=== PATIENT | male | born 1945 | race Caucasian/White ===

== ENCOUNTER 2020-11-15 11:48 | Outpatient (CLI) | payer MEDICARE, OTHER | END 2020-11-15 11:49 | disposition home or self-care (01) | LOC: CTENTCT 11:48 | PROVIDERS: ATTEND Student in an Organized Health Care Education/Training Program | DX: R22.0 Localized swelling, mass and lump, head (principal) | CPT/HCPCS: 70486 ==

== ENCOUNTER 2020-12-02 14:33 | Outpatient (CLI) | payer MEDICARE, OTHER ==
--- NOTE | 2020-12-02 15:23 | RAD ---
2 VIEW CHEST: Date: 12/02/2020 HISTORY: Cough. There is a history of left pneumonectomy given by the technologist. No comparison. FINDINGS: Opacification of left chest with mediastinum shifted into the left chest consistent with the stated h istory of left pneumonectomy. The right lung is hyperexpanded and appears clear. No right lung infiltrate or vascular congestion id entified. Heart cannot be adequately assessed due to shift into the left chest. There is aortic calcification. Osseous structures unremarkable. There is mild compression of the T12 vertebra. IMPRESSION: Evidence of left pneumonectomy. No acute right lung infiltrate identified. POS: AGW
== END 2020-12-02 14:34 | disposition home or self-care (01) ==
LOC: BICRAD 14:33
PROVIDERS: ATTEND Family Medicine
DX: R05 Cough (principal); Z90.2 Acquired absence of lung [part of]
CPT/HCPCS: 71046

== ENCOUNTER 2020-12-09 09:54 | Inpatient (IN) | payer MEDICARE, OTHER ==
[2020-12-09] MEDS ORDERED: Lidocaine 1% (PF) 30 ML VIAL ONE (10:21)
--- NOTE | 2020-12-09 10:36 | RAD ---
SINGLE VIEW OF THE CHEST: COMPARISON: 12/02/2020. HISTORY: Chest pain and shortness of breath. Cough. FINDINGS: A single view of the chest shows a cardiomediastinal silhouette which is upper limits of normal in si ze. There is opacification of the left thorax secondary to left pneumonectomy with volume loss in the left thorax. There is right perihilar fullness which could represent pulmonary vascular congestion or a perihilar infiltrate. Slight blunting of the right costophrenic angle could represent a small p leural effusion. IMPRESSION: Right perihilar infiltrate versus pulmonary congestion. POS: EAA
[2020-12-09 10:37] LABS: #Eosinphils 0.1 thou/uL (0.0-0.7); #Lymphocytes 0.9 thou/uL (1.20-3.40); #Monocytes 1.3 thou/uL (0.11-0.59); #Neutrophils 8.2 thou/uL (1.40-6.50); %Basophils 0.1 % (0.0-1.0); %Eosinophils 1.3 % (0.0-10.0); %Lymphocytes 8.2 % (21.0-51.0); %Monocytes 12.5 % (0.0-10.0); %Neutrophils 77.9 % (42.0-75.0); Hemoglobin 10.7 g/dL (14.0-18.0); Mean Corpuscular HGB CONC 32.4 g/dL (32.0-36.0); Mean Corpuscular Hemoglobin 33.9 pg (27.0-31.0); Mean Platelet Volume 7.5 fL (7.4-10.4); Platelet Count 187 thou/uL (130-400); Red Blood Cell (RBC) Count 3.16 mill/uL (4.70-6.10); White Blood Cell (WBC) Count 10.5 thou/uL (4.8-10.8)
[2020-12-09 10:44] LABS: INR-International Normal Ratio 1.4; PTT 39.1 sec (22.9-36.1); Prothrombin Time 17.9 sec (12.0-14.7)
[2020-12-09 10:58] LABS: ALT (SGPT) 16 U/L (8-55); AST (SGOT) 9 U/L (5-34); Albumin 3.2 g/dL (3.4-4.8); Alkaline Phosphatase 79 U/L (40-110); Anion Gap 13 mmol/L (10-20); BUN (Urea Nitrogen) 28 mg/dL (8.4-25.7); Bilirubin, Total 1.4 mg/dL (0.2-1.2); CK (CPK) 37 U/L (30-200); Calc. Creatinine Clearance 0 mL/min (70-130); Calcium 8.4 mg/dL (7.8-10.44); Carbon Dioxide 28 mmol/L (23-31); Chloride 105 mmol/L (98-107); Globulin 2.6 g/dL (2.4-3.5); Glucose 277 mg/dL (83-110); Potassium 3.6 mmol/L (3.5-5.1); Protein, Total 5.8 g/dL (5.8-8.1); Sodium 142 mmol/L (136-145)
[2020-12-09 11:20] LABS: CKMB 2.4 ng/mL (0-6.6)
[2020-12-09] MEDS ORDERED: Furosemide 40 MG/4 ML VIAL ONE (11:57)
[2020-12-09] MEDS ORDERED: Enoxaparin Sodium 100 MG/ML SYRINGE ONE (11:57)
[2020-12-09] MEDS ORDERED: Enoxaparin Sodium 80 MG/0.8 ML SYRINGE ONE (12:34)
[2020-12-09] MEDS ORDERED: Enoxaparin Sodium 40 MG/0.4 ML SYRINGE ONE (12:34)
[2020-12-09] MEDS ORDERED: Ondansetron ODT 4 MG TAB PO PRN (12:46)
[2020-12-09] MEDS ORDERED: Ondansetron PF 4 MG/2 ML Vial IVP PRN (12:46)
[2020-12-09] MEDS ORDERED: Acetaminophen 325 MG TAB PO PRN (12:46)
[2020-12-09] MEDS ORDERED: hydrALAZINE 20 MG/ML VIAL SLOW IVP PRN (12:50)
[2020-12-09] MEDS ORDERED: Nitroglycerin 0.4 MG TAB (25 Tab Bottle) SL PRN (12:50)
--- NOTE | 2020-12-09 13:02 | CON ---
DATE OF CONSULTATION: 12/09/2020 INDICATION FOR CONSULTATION: A 75-year-old gentleman with history of coronary artery disease status post angioplasty and stent placement, who presented with shortness of breath and chest discomfort. HISTORY OF PRESENT ILLNESS: This is a very unfortunate 75-year-old gentleman who has undergone angioplasty and stent placement to both the left anterior descending and also a left main. He had a stent placed in the ostial left main with a 3.0 x 15 mm stent. He also had a stent placed in 2012 to the left anterior descending artery, which was a 2.7 x 18 mm stent. He had one cardiac catheterization in January 2020. He was told he had patent stents. He recently had an echocardiogram and was seen by Dr. Stephens in the office. It was told the ejection fraction was within normal limits, but he had diastolic dysfunction. He has multiple other problems, not only including his coronary artery disease, but has history of COPD, has lung cancers, has left lung removed. He also has diabetes. He has been diagnosed with celiac disease as well as his other medical problems which will be listed in his past medical history when I dictate that portion this morning. Apparently over the last couple days, he has been noticing increasing shortness of breath and coughing. He did not have a fever. He is on home O2 of 24/7 and when become more short of breath, he notices O2 sats after he would get up and go to the bathroom and come back were in the 80s, and actually dropping down to the 70s at times. He is normally on 3.5 L of oxygen. He had increased his oxygen level up to 4 L/minute, but then cut it back down to 3.5 L/minute and feeling this might be too much. The lowest O2 saturation he saw was about 69% eventually and also his blood pressure at home was elevated as much as 187/70, but has been mainly in the 150s at home. He also takes midodrine 3 times a day apparently for some orthostatic hypotension. He had been falling in the past. This apparently has stopped. He does not know when he had falls. He did not admit that he was having lightheadedness or dizziness when he was falling, but said that may be his legs just give way. He has gained about 7 pounds recently, which most likely is due to volume intake. He tries to balance this fluid because he has renal insufficiency and today his creatinine is 1.5, but previously his creatinine has been as high as 2.04 in September of this past year. At this time, he is feeling better and only has minimal discomfort. His EKG did not show any acute ST-segment changes. He did have some nonspecific changes. He also has a history of intermittent atrial fibrillation. Some of the EKGs today appear to be in sinus rhythm. Others appear to be almost an atrial fibrillation. He has been on Pradaxa every day. He also takes Plavix as well as an aspirin. His Pradaxa 75 mg twice a day. He also takes Ranexa. At this time, again there is no acute ST-segment changes. Cardiac enzymes are still pending at the time of this dictation. We will continue to monitor those very carefully and I will recheck him prior to finishing the dictation. At this time, he is feeling better. He does not exert himself. He does not have too much shortness of breath. O2 saturations here in the 90% to 100% on 3 L. PAST MEDICAL AND SURGICAL HISTORY: Significant for coronary artery disease. He has had angioplasty and stent placement as noted above. He has had a partial thyroidectomy. He has had a cholecystectomy. He had a port placed for chemotherapy in his left upper chest. He had removal of the left lung due to lung cancer. He has had kidney stones and bladder tumors. He had cataract removal of the left eye. He has also had some cataract removal of the right eye. He has had laser surgery to the kidney I believe due to nephrolithiasis. He has had a colonoscopy. He has had problems with urinary retention. He has had urinary tract infections in the past. He has diabetes, hypertension. He has diastolic dysfunction. He also has celiac disease. MEDICATIONS PRIOR TO ADMISSION: Include: 1. Allopurinol 300 mg a day. 2. Alphagan ophthalmic drops. 3. He takes cetirizine 10 mg q.p.m. 4. He takes vitamin B12. 5. He takes Lexapro 10 mg every morning. 6. He is on ferrous sulfate 325 mg q.a.m. 7. Fluticasone nasal spray. 8. Gabapentin 300 mg q.p.m. 9. He takes Incruse Ellipta INH 1 inhalation daily. 10. Levoxyl 75 mcg q.a.m. 11. Lipitor 80 mg a day. 12. Midodrine 5 mg 3 times a day, which has been recently decreased to twice a day due to having low blood pressure at home. His family, caretakers, and daughter says his blood pressures have been in the 90s to 110s, but at times have been in the 150s. 13. He is on mirtazapine 7.5 mg q.p.m. 14. Nitroglycerin patch sublingual as needed. 15. Qunol CoQ10 100 mg q.a.m. 16. Plavix 75 mg q.a.m. 17. He is also taking Pepcid/AC 10 mg 2 tablets q.p.m. 18. Pradaxa 75 mg b.i.d. 19. Ranexa 1000 mg b.i.d. 20. Symbicort aerosol inhalation every 12 hours. 21. Flomax 0.4 mg q.p.m. 22. Temazepam 7.5 mg q.p.m. 23. Trazodone 100 mg q.p.m. 24. Vitamin C 1000 mg q.a.m. 25. Vitamin D2. 26. Welchol. ALLERGIES: HE IS ALLERGIC TO MORPHINE. REVIEW OF SYSTEMS: On discussion today, he has had some right ear and right eye problems, which is congestion. He says actually some of his problems started since this had occurred a couple weeks ago with the increasing congestion. He was given steroids and then has had some problems since that time. CT scan at that time did not show any significant problems with the sinuses. Apparently, CT scan was unremarkable. He was given some ophthalmic drops and that he notices some congestion. He has also had some coughing. He has had some mata tinged sputum. He has had some occasional diarrhea which he attributes to some of his celiac disease, but has been under much better control since he has been watching his diet. He is on a celiac diet. Also, he has had no new complaints. He has had some lower extremity edema, but this is not any worse than what it usually is, but he has gained about 7 pounds in the last week or so. Neurologically no new complaints. PHYSICAL EXAMINATION: GENERAL: Reveals an elderly gentleman. He is in no acute distress. He does have some mild shortness of breath if it becomes too agitated or moves about too much in the emergency room up and down the bed, but says his pain is very minimal at this time discomfort. HEENT: Shows the head to be normocephalic and atraumatic. Carotid pulses are present. I did not hear any gross bruits. CHEST: He has decreased breath sounds on the left side and will be expected after his pneumonectomy and he has some E/A changes there. He also has some rales noted in the right base with some slight wheezing. CARDIOVASCULAR: At this time appears to be regular. He has a systolic murmur at the apex, 2 to 3/6, compatible most likely with mitral valve regurgitation. ABDOMEN: Obese. Positive bowel sounds are present. I did not elicit any tenderness or masses. EXTREMITIES: Show no clubbing or cyanosis. He has only trace ankle edema. His popliteal and femoral pulses are present. I cannot palpate pedal pulses. NEUROLOGICAL: He appears to be grossly intact. LABORATORY DATA: At this time shows a potassium of 3.6, sodium was 142, BUN was 38 with a creatinine of 1.5, blood sugar was 277. His INR is 1.4, PTT was 39.1. His WBC is 10.5, hemoglobin 10.7, hematocrit 33.1, and platelet count was 187,000. DIAGNOSTIC STUDIES: Chest x-ray shows some right mid to lower congestion. This is either an infiltrate versus congestion. This certainly could be congestion. The left side is pretty much den out. EKG at this time to me appears to be in a sinus rhythm. He has some nonspecific ST-segment changes with T-wave inversions in 1 and aVL. I do not have any EKGs for comparison, but there were no acute ST-segment changes or acute ST-segment elevation at this time. IMPRESSION AND PLAN: 1. Coronary artery disease with possible hvb-LY-dcceroy elevation myocardial infarction. We will obtain cardiac enzymes. We will trend these enzymes. Should the patient continued to have chest pain or significant elevation of cardiac enzymes or further chest pain, he may need to go to the cardiac laborer. At this time, I believe he does have volume overload. We will need some diuresis. He has difficulty just lying down flat, which would make this more difficult to proceed with cardiac catheterization unless it becomes an emergency. We will continue to monitor this very carefully as we do know he has left main disease and a stent in the left main as well as in the left anterior descending artery. At this time, there were no anterior ST-segment elevations noted, but he did have some lateral changes in 1 and aVL with T-wave inversions. 2. History of lung cancer, status post left pneumonectomy. 3. Chronic obstructive pulmonary disease. He has seen Dr. Kaur in the past. If he continues to have increasing shortness of breath and problems oxygenating, he may need to be seen by Pulmonology. 4. Diabetes. This will be dealt by the primary care service. He has been on steroids for a recent cough and congestion and this may have caused the elevation in the blood sugar. 5. History of intermittent atrial fibrillation. At this time, it appears that he has a sinus rhythm, but may be intermittently one of the EKGs earlier today in the emergency room did appear to be in sinus rhythm, but the P waves at baseline is somewhat difficult to visualize. We will continue to monitor the patient very carefully. At this time, he is on anticoagulation in the form of Pradaxa as well as Plavix and aspirin. I am not sure about the aspirin. He may or may not be taking a baby aspirin. We will need to verify this. I do not see listed on his medications, but the daughter did mention something about aspirin. 6. History of chronic kidney disease. This will also need to be followed very carefully. We will need to try to gently diurese the patient in order to assist his heart failure and then order not to over diurese the patient should he need to undergo cardiac catheterization. Would not want to further injure the kidneys. 7. Celiac disease. This will need to be dealt also by the primary care service. 8. Anemia. This may be due to some degree of dilution and will follow that also very carefully. Further care of the patient will be by Dr. Stephens when he visits with the patient tomorrow unless the patient becomes more unstable, which would entail most likely an urgent cardiac catheterization. Job ID: [id number]
[2020-12-09 13:09] LABS: SARS-CoV-2 NAA Rapid Test Not Detected (NotDetected)
[2020-12-09 13:30] LABS: Cardiac Risk 2.2 (Less than 4.5)
[2020-12-09 15:20] VITALS: BMI 36.1
[2020-12-09] MEDS: cefTRIAXone\\ROCEPHIN 1 GM in Sodium Chloride 0.9% 100 ML IVPB SCH (15:39)
[2020-12-09] MEDS: guaiFENesin 200 MG TAB PO SCH ×2 (15:40→20:18)
[2020-12-09] MEDS: Heparin 5,000 UNITS/ML VIAL SC SCH ×2 (15:40→20:19)
[2020-12-09 17:03] LABS: CKMB 2.7 ng/mL (0-6.6)
[2020-12-09] MEDS: HumaLOG 300 UNITS/3 ML VIAL SC PRN (17:14)
[2020-12-09] MEDS ORDERED: Dextrose 5% in Water 1,000 ML IV PRN (17:15)
[2020-12-09] MEDS ORDERED: Dextrose 50% Abboject 50 ML SYRINGE IVP PRN (17:15)
[2020-12-09] MEDS: Atorvastatin Calcium 40 MG TAB PO SCH (20:18)
[2020-12-10] MEDS: guaiFENesin 200 MG TAB PO SCH ×6 (01:52→20:44)
[2020-12-10 04:50] LABS: #Eosinphils 0.4 thou/uL (0.0-0.7); #Lymphocytes 1.4 thou/uL (1.20-3.40); #Monocytes 0.8 thou/uL (0.11-0.59); #Neutrophils 4.9 thou/uL (1.40-6.50); %Basophils 0.1 % (0.0-1.0); %Eosinophils 5.4 % (0.0-10.0); %Lymphocytes 18.4 % (21.0-51.0); %Neutrophils 66.1 % (42.0-75.0); Hemoglobin 10.5 g/dL (14.0-18.0); Mean Corpuscular HGB CONC 33.2 g/dL (32.0-36.0); Mean Corpuscular Hemoglobin 34.1 pg (27.0-31.0); Mean Platelet Volume 7.7 fL (7.4-10.4); Platelet Count 182 thou/uL (130-400); RBC Distribution Width 14.1 % (11.5-14.5); Red Blood Cell (RBC) Count 3.08 mill/uL (4.70-6.10); White Blood Cell (WBC) Count 7.5 thou/uL (4.8-10.8)
[2020-12-10 04:54] LABS: Hemoglobin A1c 5.4 % (4.0-6.0)
[2020-12-10 05:12] LABS: Anion Gap 14 mmol/L (10-20); BUN (Urea Nitrogen) 26 mg/dL (8.4-25.7); Calc. Creatinine Clearance 70 mL/min (70-130); Calcium 8.2 mg/dL (7.8-10.44); Carbon Dioxide 26 mmol/L (23-31); Chloride 107 mmol/L (98-107); Glucose 156 mg/dL (83-110); Potassium 3.3 mmol/L (3.5-5.1); Sodium 144 mmol/L (136-145)
--- NOTE | 2020-12-10 05:20 | HP ---
CHIEF COMPLAINT: Chest pain. HISTORY OF PRESENT ILLNESS: A 75-year-old male with a history of coronary artery disease, status post stent placement to the left main; type-2 diabetes mellitus; chronic kidney disease; celiac disease; presenting with chest pain radiating to the left side. The patient also has productive cough and overall not feeling well and dyspnea on exertion. He did not have any fever, but productive cough for the last few days. Chest pain is similar to what he had in the past in the center of the chest as well as at the back. It is going on for the last 3 days intermittently. Initial EKG showed inferior lead ST-T wave changes, almost like STEMI. However, repeat EKG showed improvement in the ST-T wave changes, which seems to be mild and improved. Dr. Gray has been contacted by the ER physician. It appears that he is not a candidate for emergent catheterization. The patient will be admitted in the tele for further management. Dr. Stephens will be following him tomorrow. REVIEW OF SYSTEMS: The patient had no fever, but productive cough for the last few days. No nausea, vomiting, abdominal pain, constipation, hematuria, dysuria, or hematochezia. Denies any headaches, tingling, or numbness in his extremities. Rest of the review of systems are negative. PAST MEDICAL HISTORY: 1. Coronary artery disease, stent placement in the left main, stent placement in the LAD and ostial left main. The last catheterization was in January 2020. 2. COPD. 3. History of lung cancer, status post left lung removal, status post port placement in the left upper chest for the chemo. 4. Cataract removal. 5. Lithotripsy. 6. Type-2 diabetes mellitus, hypertension, celiac disease. MEDICATIONS: Not reconciled yet, but based on the previous information that he takes; 1. Mirtazapine 7.5 mg as needed. 2. Plavix 75 mg daily. 3. Pepcid. 4. Gabapentin 300 mg nighttime. 5. Ferrous sulfate. 6. Vitamin B12. 7. Cetirizine. 8. Allopurinol 300 mg daily. 9. Levothyroxine 75 mcg. 10. Flomax 0.4 mg in the evening. 11. Pradaxa 75 mg twice a day. 12. Ranexa 1000 mg twice a day. 13. Vitamin D2 . ALLERGIES: HE IS ALLERGIC TO MORPHINE. SOCIAL HISTORY: The patient does not smoke. He drinks occasionally. FAMILY HISTORY: Significant for father who had cardiovascular disease; mother and grandmother had breast cancer. PHYSICAL EXAMINATION: VITAL SIGNS: He is afebrile. Currently, normotensive. He is saturating 98% with 3 L oxygen by nasal cannula. GENERAL: The patient is alert, oriented x3. He has lot of cough while I am there, but he is nontoxic appearing. HEENT: Pupils are equal, round, and reactive to light. Anicteric. Mucous membranes moist. CARDIOVASCULAR: He has a regular rate and rhythm. He does have a systolic murmur 3/6 on the lateral side. LUNGS: Clear. He has extensive crackles mostly notable on the right side and decreased breath sound on the left. ABDOMEN: Soft, nontender, nondistended, but distended with his body habitus. EXTREMITIES: He has no pitting edema, but appreciate trace ankle edema. No rash noted. PSYCHIATRIC: Appropriate mood and affect. LABORATORY DATA: Sodium 142, potassium 3.6, BUN 38, creatinine 1.5. INR 1.44. WBC 10.5, hemoglobin 10.7, platelets 187,000. Chest x-ray, right hilar area infiltrate versus congestion. EKG, sinus rhythm with nonspecific ST-T wave changes along with T inversions in the inferior lead as well as lead aVL. IMPRESSION AND PLAN: This is a 75-year-old male with history of lung cancer, status post left lobectomy, presenting with chest pain. 1. Concern for NSTEMI. We will get the serial troponin. I will initiate him on aspirin. The home medications are not finalized yet. Currently, I will put him on aspirin and Lipitor. I have been informed by the ER nurse to hold the Pradaxa per Dr. Gray. 2. Possible bronchitis and history of left lobectomy for lung cancer. 3. History of chronic obstructive pulmonary disease. His sats are 98% with 3 L. Given his immunocompromised state, it could be bronchitis. COVID ruled out as well as flu test. I will treat him empirically with ceftriaxone and Zithromax for bronchitis along with cough suppressants. He might benefit with DuoNeb p.r.n.. Pulmonary consult. He is known to Dr. Kaur in the past. 4. Volume overload and new-onset CHF. His BNP is 769 and his creatinine is 1.50, and I do not have a prior creatinine to know whether it is acute or chronic one. I will go ahead and start him on a gentle diuresis. He is on home oxygen 24/7 for his shortness of breath as needed. It appears that he had a recent echo and I could not see that in the system. Will order the echo. Sahil also consult container packer operator. 5. Type-2 diabetes mellitus. Initiate the sliding scale insulin. 6. Hypothyroidism. The patient is on supplement. Again, med rec has to be completed before initiating that. Full code. Job ID: [id number] MTDD
[2020-12-10] MEDS: Furosemide 20 MG/2 ML VIAL SLOW IVP SCH ×2 (05:52→13:04)
[2020-12-10] MEDS: Aspirin 81 mg Enteric Coated Tablet PO SCH (08:06)
[2020-12-10] MEDS: Azithromycin 250 MG TAB PO SCH (08:06)
[2020-12-10] MEDS: Heparin 5,000 UNITS/ML VIAL SC SCH ×2 (08:07→15:00)
--- NOTE | 2020-12-10 10:03 | PRG ---
DATE OF SERVICE: 12/10/2020 SUBJECTIVE: Mr. Lane is feeling better. He is not having chest pain. Yesterday, shortness of breath and palpitations with some chest pain as well. He said he is breathing better. OBJECTIVE: VITAL SIGNS: His blood pressure 113/55, pulse 70. LUNGS: There is some rhonchi, do not hear rales. There are no breath sounds on the left side. He has previous pneumonectomy. ABDOMEN: Obese and nontender. EXTREMITIES: Palpable pulse in the popliteal area bilaterally. Decreased pedal pulses. PERTINENT LABORATORY: INR yesterday 1.4, creatinine 1.43. GFR 48. ASSESSMENT: 1. Status post kvr-GL-[id number] infarction. 2. Congestive heart failure. 3. Severe coronary disease with stent in his left main and LAD. 4. Previous pneumonectomy. 5. He says he has recurrent bladder cancer. 6. Previous lung cancer with pneumonectomy. 7. Congestive heart failure, probably systolic, acute on chronic, still likely in some heart failure. PLAN: 1. Repeat chest x-ray. 2. Continue diuresis. 3. Hold Pradaxa. 4. Echocardiogram. 5. Catheterization in 1-2 days, once it is safer with the Pradaxa, GFR in this range has a half-life of about 24 hours. Recheck PT, PTT will also be helpful. Prognosis guarded in this gentleman with severe multiple problems. Job ID: [id number]
--- NOTE | 2020-12-10 10:35 | RAD ---
EXAM: Single view of the chest HISTORY: CHF COMPARISON: 12/09/2020 FINDINGS: Single view of the chest shows a normal sized cardiomediastinal silhouette. There is opaci fication the left thorax secondary to prior left pneumonectomy. Atherosclerotic calcifications are seen in the aorta. There may be a subtle right perihilar infiltrate. No right pleural effusion. No a cute osseous abnormality. IMPRESSION: Stable exam
[2020-12-10 10:40] LABS: INR-International Normal Ratio 1.3; Prothrombin Time 16.9 sec (12.0-14.7)
[2020-12-10] MEDS ORDERED: Potassium Chloride 20 MEQ TAB PO SCH (12:00)
[2020-12-10] MEDS ORDERED: TEMAZEPAM 7.5 MG PO PRN (12:19)
[2020-12-10] MEDS: cefTRIAXone\\ROCEPHIN 1 GM in Sodium Chloride 0.9% 100 ML IVPB SCH (13:04)
[2020-12-10] MEDS: methylPREDNISolone Sod Succ 40 MG VIAL IVP SCH ×2 (13:04→16:56)
--- NOTE | 2020-12-10 13:10 | CON ---
DATE OF CONSULTATION: HISTORY OF PRESENT ILLNESS: Denzel Lane is a 75-year-old gentleman, who has seen Dr. Kaur in the office. He came to the hospital with increasing shortness of breath, orthopnea, and PND. His oxygen sats were less than 80%. He is 5 feet 10 inches, 247 pounds. He is now on the MICU, being seen by Cardiology and Pulmonary. In most days, he can barely walk 20 feet without getting markedly short of breath. No fever or chills. His coronavirus test was done, which is negative. PAST MEDICAL HISTORY: 1. COPD. 2. Sleep apnea. 3. Renal failure. 4. Bladder tumour. 5. Atrial fibrillation. 6. Hypothyroidism. PAST SURGICAL HISTORY: 1. Previous thyroid surgery. 2. Gallbladder. 3. Previous catheterization, multiple stents. 4. Left pneumonectomy. 5. Cataract surgery. 6. Kidney stones. 7. Bladder cancer surgery. HABITS: Tobacco, quit 10 years ago, a pack a day. Alcohol, none. HOME MEDICINES: 1. BiPAP. 2. Allopurinol 300. 3. Desyrel 100. 4. Ellipta once a day. 5. Temazepam. 6. Ranexa. 7. Nitroglycerin. 8. Midodrine 5 mg. 9. Synthroid 75. 10. Plavix 75. 11. Symbicort. 12. Gabapentin. 13. Lexapro 10. REVIEW OF SYSTEMS: Negative. PHYSICAL EXAMINATION: VITAL SIGNS: Temperature 98, pulse 70, respiratory rate 20, sats are 90% on 3 L nasal O2 attached to his BiPAP, blood pressure 130/56. CHEST: Right lung reveals rhonchi and crackles, minimal wheezing. Left lung unremarkable. CARDIAC: Normal S1, S2. No gallops. ABDOMEN: No masses. LABORATORY DATA: White count 7000. Lytes are normal. Creatinine 1.43, GFR is 48. IMPRESSION: Respiratory failure, combination of CHF, COPD exacerbation, previous pneumonectomy, previous infiltrate on admission, x-ray looks much improved. PLAN: I am starting him on low-dose steroids. Neb treatments, supportive care. We will notify Dr. Kaur and Cardiology, ongoing treatment evaluation. Consultation note, 70 minutes, 50% direct patient care. Job ID: [id number]
[2020-12-10] MEDS ORDERED: Cyanocobalamin 1000 MCG/ML VIAL SC SCH (14:00)
[2020-12-10] MEDS: Brimonidine Tartrate 0.2% Ophth Soln 5 ml Bottle EA EYE SCH ×2 (15:00→20:46)
[2020-12-10] MEDS: Midodrine HCl 5 MG TAB PO SCH ×2 (15:00→20:45)
[2020-12-10] MEDS: HumaLOG 300 UNITS/3 ML VIAL SC PRN ×2 (16:55→21:42)
--- NOTE | 2020-12-10 17:59 | PDOC.HOSPP ---
- Subjective Encounter Date: 12/10/20 Encounter Time: 09:30 Subjective: Seen for follow-up regarding non-STEMI. Reports chest pain is better. - Objective Vital Signs & Weight: Vital Signs (12 hours) Temp Pulse Resp BP Pulse Ox 12/10/20 15:06 98.3 F 80 20 116/70 100 12/10/20 11:07 98.1 F 94 20 119/56 L 100 12/10/20 07:06 98.1 F 75 20 113/55 L 99 Weight Weight 247 lb 5 oz I&O: 12/09/20 12/10/20 12/11/20 06:59 06:59 06:59 Intake Total 840 Output Total 1520 Balance -680 Result Diagrams: 12/10/20 04:22 12/10/20 04:22 Additional Labs: Accuchecks 12/10/20 12/10/20 12/09/20 16:39 10:35 20:38 POC Glucose 225 H 165 H 179 H I reviewed patient's labs and MAR EKG Reviewed by me: Yes (Normal sinus rhythm on telemetry) Hospitalist ROS - Review of Systems Cardiovascular: denies: chest pain, palpitations, orthopnea, paroxysmal noc. dyspnea, edema, light headedness Gastrointestinal: denies: nausea, vomiting, abdominal pain, diarrhea, constipation, melena, hematochezia - Medication Medications: Active Medications Generic Name Dose Route Start Last Admin Trade Name Freq PRN Reason Stop Dose Admin Acetaminophen 650 mg 12/09/20 12:46 12/09/20 20:19 Acetaminophen 325 Mg Tab PO 650 mg Q4H PRN Administration Headache/Fever/Mild Pain (1-3) Albuterol/Ipratropium 3 ml 12/10/20 13:00 12/10/20 15:08 Ipratropium/Albuterol Sulfate 3 Ml Neb NEB Not Given [id number] BEATA Aspirin 81 mg 12/10/20 09:00 12/10/20 08:06 Aspirin 81 Mg Enteric Coated Tablet PO 81 mg DAILY BEATA Administration Atorvastatin Calcium 40 mg 12/09/20 21:00 12/09/20 20:18 Atorvastatin Calcium 40 Mg Tab PO 40 mg HS BEATA Administration Azithromycin 500 mg 12/10/20 09:00 12/10/20 08:06 Azithromycin 250 Mg Tab PO 12/13/20 09:01 500 mg DAILY BEATA Administration Brimonidine Tartrate 1 drop 12/10/20 15:00 12/10/20 15:00 Brimonidine Tartrate 0.2% Ophth Soln 5 Ml Bottle EA EYE 1 drop TID BEATA Administration Cyanocobalamin 100 mcg 12/10/20 14:00 12/10/20 14:58 Cyanocobalamin 1000 Mcg/Ml Vial SC 100 mcg Q28D BEATA Administration Guaifenesin 400 mg 12/09/20 17:00 12/10/20 16:55 Guaifenesin 200 Mg Tab PO 12/11/20 17:01 400 mg Q4HR BEATA Administration Ceftriaxone Sodium 1 gm/ 100 mls @ 200 mls/hr 12/09/20 14:00 12/10/20 13:04 Sodium Chloride IVPB 100 mls Q24HR BEATA Administration Insulin Human Lispro 0 units 12/09/20 17:15 12/10/20 16:55 Humalog 300 Units/3 Ml Vial SC 4 unit .MODERATE SLIDING SC PRN Administration MODERATE SLIDING SCALE Protocol Methylprednisolone Sodium Succinate 40 mg 12/10/20 12:00 12/10/20 16:56 Methylprednisolone Sod Succ 40 Mg Vial IVP 40 mg Q6HR BEATA Administration Midodrine 5 mg 12/10/20 15:00 12/10/20 15:00 Midodrine Hcl 5 Mg Tab PO 5 mg TID BEATA Administration - Exam General Appearance: awake alert Eye: anicteric sclera ENT: moist mucosa Neck: supple Heart: RRR Respiratory: CTAB Gastrointestinal: soft Extremities: no cyanosis Skin: no rashes Neurological: cranial nerve grossly intact Psychiatric: normal affect, normal behavior Hosp A/P (1) NSTEMI (non-ST elevated myocardial infarction) Code(s): I21.4 - NON-ST ELEVATION (NSTEMI) MYOCARDIAL INFARCTION Status: Acute (2) Acute respiratory failure with hypoxia Code(s): J96.01 - ACUTE RESPIRATORY FAILURE WITH HYPOXIA Status: Acute (3) Volume overload Code(s): E87.70 - FLUID OVERLOAD, UNSPECIFIED Status: Acute (4) Acute CHF Code(s): I50.9 - HEART FAILURE, UNSPECIFIED Status: Acute Qualifiers: Heart failure type: unspecified Qualified Code(s): I50.9 - Heart failure, unspecified (5) DM2 (diabetes mellitus, type 2) Status: Chronic (6) Hypothyroidism Code(s): E03.9 - HYPOTHYROIDISM, UNSPECIFIED Status: Chronic (7) BPH (benign prostatic hyperplasia) Code(s): N40.0 - BENIGN PROSTATIC HYPERPLASIA WITHOUT LOWER URINRY TRACT SYMP Status: Chronic - Plan Continue IV ceftriaxone, azithromycin, bronchodilators and steroids. Continue oxygen as needed. Continue furosemide 20 mg IV twice daily. Continue insulin sliding scale and Accu-Cheks. Continue Ranexa. Continue tamsulosin. TSH is low but free T4 is normal, repeat thyroid panel in 6 weeks.
[2020-12-10] MEDS ORDERED: Communication Order-Pharmacy FS SCH (18:00)
[2020-12-10] MEDS: Mometasone 200 MCG/Formoterol 5 MCG 120 PUFF INHALER INH SCH (18:42)
--- NOTE | 2020-12-10 18:58 | PRG ---
DATE OF SERVICE: 12/10/2020 SUBJECTIVE: Mr. Lane is breathing better, but still having occasional substernal chest pain. It has now been 48 hours since his last Pradaxa dose. He was on reduced dose of Pradaxa. Breathing better, but he is mentioned having some chest pain. Chest x-ray reveals some congestive heart failure, which I think is improving. The INR today is 1.3. The PTT is 33. ASSESSMENT: 1. Complicated coronary artery disease with stent implantation in the left main and LAD. 2. Previous pneumonectomy. 3. He indicates to me that they were unable to do a cardiac catheterization from the right wrist for anatomic reasons that the arteries could not be cannulated, had to be done femorally. PLAN: Proceed to cardiac catheterization tomorrow. Discussed risk of stroke, heart attack, iodine allergy, loss of left lower leg or kidney, stent thrombosis, stent restenosis. The patient understands and wishes to proceed. Job ID: [id number]
[2020-12-10] MEDS: Gabapentin 300 MG CAP PO SCH (20:45)
[2020-12-10] MEDS: Mirtazapine 15 MG TAB PO SCH (20:45)
[2020-12-10] MEDS: Tamsulosin HCl 0.4 MG CAP PO SCH (20:45)
[2020-12-10] MEDS: Atorvastatin Calcium 40 MG TAB PO SCH (20:46)
[2020-12-10] MEDS: Famotidine 20 MG TAB PO SCH (20:49)
[2020-12-10] MEDS ORDERED: Non-Formulary Item 1 EACH (Budesonide-Formoterol [Symbicort 160-4.5] 160 MG/4.5 MG Aer) INH SCH (21:00)
[2020-12-11] MEDS: methylPREDNISolone Sod Succ 40 MG VIAL IVP SCH ×4 (00:32→17:33)
[2020-12-11] MEDS: guaiFENesin 200 MG TAB PO SCH ×5 (00:32→17:33)
[2020-12-11 05:43] LABS: Chloride 105 mmol/L (98-107); Potassium 4.1 mmol/L (3.5-5.1); Sodium 138 mmol/L (136-145)
[2020-12-11 05:44] LABS: Anion Gap 17 mmol/L (10-20); BUN (Urea Nitrogen) 35 mg/dL (8.4-25.7); Calc. Creatinine Clearance 64 mL/min (70-130); Carbon Dioxide 20 mmol/L (23-31); Glucose 324 mg/dL (83-110)
[2020-12-11 05:57] LABS: INR-International Normal Ratio 1.3; PTT 44.2 sec (22.9-36.1); Prothrombin Time 16.3 sec (12.0-14.7)
[2020-12-11] MEDS: Ubidecarenone 50 MG CAP PO SCH (06:09)
[2020-12-11] MEDS: Sodium Chloride 0.9% 1,000 ML IV SCH (06:09)
[2020-12-11] MEDS: Aspirin 81 mg Enteric Coated Tablet PO SCH (06:10)
[2020-12-11] MEDS: Ferrous Sulfate 325 MG TAB PO SCH (06:10)
[2020-12-11] MEDS: Ascorbic Acid 500 mg Chewable Tablet PO SCH (06:10)
[2020-12-11] MEDS: Azithromycin 250 MG TAB PO SCH (06:10)
[2020-12-11] MEDS: Midodrine HCl 5 MG TAB PO SCH ×3 (06:10→22:01)
[2020-12-11] MEDS: Escitalopram Oxalate 10 mg Tablet PO SCH (06:10)
[2020-12-11] MEDS: Allopurinol 300 MG TAB PO SCH (06:11)
[2020-12-11] MEDS: Levothyroxine Sodium 75 MCG TAB PO SCH (06:11)
[2020-12-11] MEDS: Cholecalciferol 1,000 UNITS (25 MCG) TAB PO SCH (06:11)
[2020-12-11] MEDS: Mometasone 200 MCG/Formoterol 5 MCG 120 PUFF INHALER INH SCH ×2 (08:11→19:20)
[2020-12-11] MEDS ORDERED: Non-Formulary Item 1 EACH (Umeclidinium Bromide [Incruse Ellipta] 62.5 MCG Blst.W.Dev) IH SCH (09:00)
[2020-12-11] MEDS: Brimonidine Tartrate 0.2% Ophth Soln 5 ml Bottle EA EYE SCH ×3 (09:58→22:02)
[2020-12-11] MEDS: Cholestyramine/Aspartame 4 gm Packet PO SCH (09:59)
--- NOTE | 2020-12-11 10:04 | PRG ---
DATE OF SERVICE: SUBJECTIVE: Mr. Lane is feeling well today. He is comfortable. OBJECTIVE: VITAL SIGNS: His blood pressure is 114/57; pulse 70, it is regular, it is sinus on the monitor. LUNGS: Clear. There is no wheezing or rhonchi. CARDIAC: Normal S1, normal S2. ABDOMEN: Soft, nontender. EXTREMITIES: There is no edema. LABORATORY DATA: Creatinine is 1.53, GFR slightly lower at 44. Coagulation still has an INR of 1.3, PTT is 44.2, this is probably still related to Pradaxa. ASSESSMENT: 1. Severe coronary artery disease with multiple stents implanted including stent in the left main coronary artery. 2. Renal failure stage 3. 3. Congestive heart failure, diastolic. 4. Persistent coagulopathy, likely related to Pradaxa. 5. Renal function slightly worse. PLAN: 1. Give him intravenous fluids at a very low rate. 2. Check base met tomorrow. 3. Proceed to catheterization tomorrow. Decided to wait one more day to let the Pradaxa levels come down a little more. He cannot have a radial catheterization. He said they were unsuccessful doing a radial artery catheterization in the past. The reversal agent for Pradaxa is not available at this institution. It would be safer to wait one more day. The patient understands risks of the procedure and was scheduled for tomorrow morning. Long-term prognosis is guarded. The patient wishes do not resuscitate status. I explained that if he does have an episode of a cardiac arrest in the catheterization lab, we would need to treat that and he agrees suspend the DNR order during the catheterization. Job ID: [id number]
[2020-12-11] MEDS: HumaLOG 300 UNITS/3 ML VIAL SC PRN ×3 (11:38→22:05)
[2020-12-11] MEDS: cefTRIAXone\\ROCEPHIN 1 GM in Sodium Chloride 0.9% 100 ML IVPB SCH (14:40)
--- NOTE | 2020-12-11 17:10 | PDOC.HOSPP ---
- Subjective Encounter Date: 12/11/20 Encounter Time: 09:00 Subjective: Patient seen for follow-up of non-ST elevation myocardial infarction. Denies any new complaints. - Objective Vital Signs & Weight: Vital Signs (12 hours) Temp Pulse Resp BP Pulse Ox 12/11/20 15:31 98.6 F 88 17 131/59 L 100 12/11/20 11:51 98.0 F 80 17 112/56 L 99 12/11/20 08:11 78 20 12/11/20 08:01 98.4 F 76 16 114/57 L 100 Weight Weight 246 lb 5 oz I&O: 12/10/20 12/11/20 12/12/20 06:59 06:59 06:59 Intake Total 840 1330 Output Total 1520 2450 Balance -680 -1120 Result Diagrams: 12/10/20 04:22 12/11/20 04:33 Additional Labs: Accuchecks 12/10/20 19:54 POC Glucose 355 H Labs and MAR reviewed by me EKG Reviewed by me: Yes (Carlos manzo on telemetry) Hospitalist ROS - Review of Systems Cardiovascular: denies: chest pain, palpitations, orthopnea, paroxysmal noc. dyspnea, edema, light headedness Genitourinary: denies: dysuria, frequency, incontinence, hematuria, retention - Medication Medications: Active Medications Generic Name Dose Route Start Last Admin Trade Name Freq PRN Reason Stop Dose Admin Acetaminophen 650 mg 12/09/20 12:46 12/09/20 20:19 Acetaminophen 325 Mg Tab PO 650 mg Q4H PRN Administration Headache/Fever/Mild Pain (1-3) Albuterol/Ipratropium 3 ml 12/10/20 13:00 12/11/20 14:28 Ipratropium/Albuterol Sulfate 3 Ml Neb NEB Not Given [id number] BEATA Allopurinol 300 mg 12/11/20 09:00 12/11/20 06:11 Allopurinol 300 Mg Tab PO 300 mg DAILY BEATA Administration Ascorbic Acid 1,000 mg 12/11/20 09:00 12/11/20 06:10 Ascorbic Acid 500 Mg Chewable Tablet PO 1,000 mg DAILY BEATA Administration Aspirin 81 mg 12/10/20 09:00 12/11/20 06:10 Aspirin 81 Mg Enteric Coated Tablet PO 81 mg DAILY BEATA Administration Atorvastatin Calcium 40 mg 12/09/20 21:00 12/10/20 20:46 Atorvastatin Calcium 40 Mg Tab PO 40 mg HS BEATA Administration Azithromycin 500 mg 12/10/20 09:00 12/11/20 06:10 Azithromycin 250 Mg Tab PO 12/13/20 09:01 500 mg DAILY BEATA Administration Brimonidine Tartrate 1 drop 12/10/20 15:00 12/11/20 14:40 Brimonidine Tartrate 0.2% Ophth Soln 5 Ml Bottle EA EYE 1 drop TID BEATA Administration Cholecalciferol 2,000 units 12/11/20 09:00 12/11/20 06:11 Cholecalciferol 1,000 Units (25 Mcg) Tab PO 2,000 units DAILY BEATA Administration Cholestyramine Resin 4 gm 12/11/20 10:00 12/11/20 09:59 Cholestyramine/Aspartame 4 Gm Packet PO 4 gm 1000 BEATA Administration Coenzyme Q10 100 mg 12/11/20 09:00 12/11/20 06:09 Ubidecarenone 50 Mg Cap PO 100 mg DAILY BEATA Administration Cyanocobalamin 100 mcg 12/10/20 14:00 12/10/20 14:58 Cyanocobalamin 1000 Mcg/Ml Vial SC 100 mcg Q28D BEATA Administration Escitalopram Oxalate 10 mg 12/11/20 09:00 12/11/20 06:10 Escitalopram Oxalate 10 Mg Tablet PO 10 mg DAILY BEATA Administration Famotidine 20 mg 12/10/20 21:00 12/10/20 20:49 Famotidine 20 Mg Tab PO 20 mg HS BEATA Administration Ferrous Sulfate 325 mg 12/11/20 08:00 12/11/20 06:10 Ferrous Sulfate 325 Mg Tab PO 325 mg QAM-WM BEATA Administration Gabapentin 300 mg 12/10/20 21:00 12/10/20 20:45 Gabapentin 300 Mg Cap PO 300 mg HS BEATA Administration Ceftriaxone Sodium 1 gm/ 100 mls @ 200 mls/hr 12/09/20 14:00 12/11/20 14:40 Sodium Chloride IVPB 100 mls Q24HR BEATA Administration Sodium Chloride 1,000 mls @ 50 mls/hr 12/11/20 06:00 12/11/20 06:09 Normal Saline 0.9% IV 1,000 mls .Q20H BEATA Administration Insulin Human Lispro 0 units 12/09/20 17:15 12/11/20 11:38 Humalog 300 Units/3 Ml Vial SC 10 unit .MODERATE SLIDING SC PRN Administration MODERATE SLIDING SCALE Protocol Insulin Human Lispro 0 units 12/10/20 21:17 12/10/20 21:42 Humalog 300 Units/3 Ml Vial SC 5 unit .BEDTIME SLIDING SC PRN Administration Bedtime Correctional Scale Levothyroxine Sodium 75 mcg 12/11/20 06:00 12/11/20 06:11 Levothyroxine Sodium 75 Mcg Tab PO 75 mcg 0600 BEATA Administration Methylprednisolone Sodium Succinate 40 mg 12/10/20 12:00 12/11/20 11:38 Methylprednisolone Sod Succ 40 Mg Vial IVP 40 mg Q6HR BEATA Administration Midodrine 5 mg 12/10/20 15:00 12/11/20 14:40 Midodrine Hcl 5 Mg Tab PO 5 mg TID BEATA Administration Mirtazapine 7.5 mg 12/10/20 21:00 12/10/20 20:45 Mirtazapine 15 Mg Tab PO 7.5 mg HS BEATA Administration Mometasone Furoate/Formoterol Fumar 2 puff 12/10/20 18:30 12/11/20 08:11 Mometasone 200 Mcg/Formoterol 5 Mcg 120 Puff Inhaler INH 2 puff BID-RT BEATA Administration Ranolazine 1,000 mg 12/10/20 21:00 12/11/20 06:10 Ranolazine 500 Mg Tab PO 1,000 mg BID BEATA Administration Tamsulosin HCl 0.4 mg 12/10/20 21:00 12/10/20 20:45 Tamsulosin Hcl 0.4 Mg Cap PO 0.4 mg HS EBATA Administration - Exam General - other findings: Obese ENT: no oropharyngeal lesions Neck: supple, symmetric Heart: irregular Respiratory: CTAB Gastrointestinal: soft, non-tender Skin: no rashes Psychiatric: normal affect, normal behavior Hosp A/P (1) NSTEMI (non-ST elevated myocardial infarction) Code(s): I21.4 - NON-ST ELEVATION (NSTEMI) MYOCARDIAL INFARCTION Status: Acute (2) Acute respiratory failure with hypoxia Code(s): J96.01 - ACUTE RESPIRATORY FAILURE WITH HYPOXIA Status: Acute (3) Volume overload Code(s): E87.70 - FLUID OVERLOAD, UNSPECIFIED Status: Acute (4) Acute CHF Code(s): I50.9 - HEART FAILURE, UNSPECIFIED Status: Acute Qualifiers: Heart failure type: unspecified Qualified Code(s): I50.9 - Heart failure, u nspecified (5) DM2 (diabetes mellitus, type 2) Status: Chronic (6) Hypothyroidism Code(s): E03.9 - HYPOTHYROIDISM, UNSPECIFIED Status: Chronic (7) BPH (benign prostatic hyperplasia) Code(s): N40.0 - BENIGN PROSTATIC HYPERPLASIA WITHOUT LOWER URINRY TRACT SYMP Status: Chronic - Plan Continue oxygen, steroids, bronchodilators and antibiotics. Continue diuretics. Continue insulin sliding scale and Accu-Cheks. Continue Ranexa. Continue tamsulosin. Patient to have cath tomorrow.
--- NOTE | 2020-12-11 20:24 | PRG ---
DATE OF SERVICE: 12/11/2020 SUBJECTIVE: Mr. Lane is clinically unchanged. He has no pulmonary complaints. He says he feels 100% better than he did on admission. OBJECTIVE: VITAL SIGNS: He is afebrile. Heart rate is 88, respiratory rate is 17, oximetry is in the high 90s, blood pressure 131/59. LUNGS: His right lung is clear. HEART: Regular rate and rhythm. ABDOMEN: Soft. LABORATORY DATA: Sodium 138, potassium 4.1, chloride 105, bicarb 20, BUN 35, creatinine 1.53. IMPRESSION: 1. History of coronary artery disease. 2. Status post left pneumonectomy. I doubt he has much of any chronic obstructive pulmonary disease given that he would have qualified for a pneumonectomy. He has never been seen by me having respiratory issues related to his remaining lung. I suspect his issues at this point in time are cardiac mediated. He is very compliant with his CPAP. We will follow the other physicians caring for him. I thoroughly enjoyed my visits with him. Job ID: [id number]
[2020-12-11] MEDS: Famotidine 20 MG TAB PO SCH (22:00)
[2020-12-11] MEDS: Gabapentin 300 MG CAP PO SCH (22:00)
[2020-12-11] MEDS: Tamsulosin HCl 0.4 MG CAP PO SCH (22:01)
[2020-12-11] MEDS: Atorvastatin Calcium 40 MG TAB PO SCH (22:01)
[2020-12-11] MEDS: Mirtazapine 15 MG TAB PO SCH (22:01)
[2020-12-12] MEDS: methylPREDNISolone Sod Succ 40 MG VIAL IVP SCH ×3 (00:45→12:34)
[2020-12-12] MEDS: Sodium Chloride 0.9% 1,000 ML IV SCH (00:47)
[2020-12-12] MEDS: Allopurinol 300 MG TAB PO SCH (05:38)
[2020-12-12] MEDS: Ascorbic Acid 500 mg Chewable Tablet PO SCH (05:38)
[2020-12-12] MEDS: Cholecalciferol 1,000 UNITS (25 MCG) TAB PO SCH (05:38)
[2020-12-12] MEDS: Ferrous Sulfate 325 MG TAB PO SCH (05:38)
[2020-12-12] MEDS: Levothyroxine Sodium 75 MCG TAB PO SCH (05:39)
[2020-12-12] MEDS: Ubidecarenone 50 MG CAP PO SCH (05:39)
[2020-12-12] MEDS: Escitalopram Oxalate 10 mg Tablet PO SCH (05:39)
[2020-12-12] MEDS: Azithromycin 250 MG TAB PO SCH (05:39)
[2020-12-12] MEDS: Aspirin 81 mg Enteric Coated Tablet PO SCH (05:39)
[2020-12-12] MEDS: Brimonidine Tartrate 0.2% Ophth Soln 5 ml Bottle EA EYE SCH ×3 (05:40→21:14)
[2020-12-12] MEDS: Midodrine HCl 5 MG TAB PO SCH ×3 (05:40→21:12)
[2020-12-12 06:16] LABS: Anion Gap 13 mmol/L (10-20); BUN (Urea Nitrogen) 47 mg/dL (8.4-25.7); Calc. Creatinine Clearance 55 mL/min (70-130); Calcium 7.8 mg/dL (7.8-10.44); Carbon Dioxide 27 mmol/L (23-31); Chloride 103 mmol/L (98-107); Glucose 428 mg/dL (83-110); Potassium 3.8 mmol/L (3.5-5.1); Sodium 139 mmol/L (136-145)
[2020-12-12] MEDS: Mometasone 200 MCG/Formoterol 5 MCG 120 PUFF INHALER INH SCH ×2 (07:15→18:38)
[2020-12-12] MEDS ORDERED: Fentanyl 100 MCG/2 ML VIAL ONE (10:02)
[2020-12-12] MEDS ORDERED: Midazolam HCl 2 mg/2 ml Vial ONE (10:03)
[2020-12-12] MEDS ORDERED: Sodium Chloride 0.9% 200 ML IV PRN (11:04)
[2020-12-12] MEDS ORDERED: Nitroglycerin 0.4 MG TAB (25 Tab Bottle) SL PRN (11:04)
[2020-12-12] MEDS ORDERED: Sodium Chloride 0.9% 1,000 ML IV SCH (11:08)
[2020-12-12] MEDS: Cholestyramine/Aspartame 4 gm Packet PO SCH (11:40)
[2020-12-12] MEDS ORDERED: Iopamidol 370 76% 100 ML VIAL ONE (13:24)
[2020-12-12] MEDS: HumaLOG 300 UNITS/3 ML VIAL SC PRN ×3 (13:35→21:14)
[2020-12-12] MEDS: cefTRIAXone\\ROCEPHIN 1 GM in Sodium Chloride 0.9% 100 ML IVPB SCH (14:38)
[2020-12-12] MEDS: Dronedarone HCl 400 MG TAB PO SCH (17:03)
--- NOTE | 2020-12-12 17:39 | PDOC.HOSPP ---
- Subjective Encounter Date: 12/12/20 Encounter Time: 17:37 Subjective: Patient seen for follow-up regarding non-ST elevation myocardial infarction. He reports shortness of breath and chest pain are better. - Objective Vital Signs & Weight: Vital Signs (12 hours) Temp Pulse Resp BP Pulse Ox 12/12/20 15:49 97.8 F 75 18 122/59 L 98 12/12/20 15:18 85 16 100 12/12/20 13:38 72 18 12/12/20 12:00 97.0 F L 80 18 108/55 L 98 12/12/20 11:20 97.7 F 88 18 128/58 L 97 12/12/20 08:00 97.6 F 88 20 103/54 L 95 12/12/20 07:15 72 18 Weight Weight 247 lb 8 oz I&O: 12/11/20 12/12/20 12/13/20 06:59 06:59 06:59 Intake Total 1330 750 Output Total 2450 900 Balance -1120 -150 Result Diagrams: 12/10/20 04:22 12/12/20 04:29 Additional Labs: Accuchecks 12/12/20 12/12/20 12/11/20 13:33 05:32 20:33 POC Glucose 417 H 376 H 463 H 12/11/20 12/11/20 17:38 11:03 POC Glucose 411 H 364 H I reviewed patient's labs and MAR EKG Reviewed by me: Yes (Normal sinus rhythm on telemetry) Hospitalist ROS - Review of Systems Respiratory: reports: SOB with excertion. denies: cough, dry, shortness of breath, hemoptysis, pleuritic pain, sputum, wheezing Cardiovascular: reports: chest pain. denies: palpitations, orthopnea, paroxysmal noc. dyspnea, edema, light headedness - Medication Medications: Active Medications Generic Name Dose Route Start Last Admin Trade Name Freq PRN Reason Stop Dose Admin Acetaminophen 650 mg 12/09/20 12:46 12/09/20 20:19 Acetaminophen 325 Mg Tab PO 650 mg Q4H PRN Administration Headache/Fever/Mild Pain (1-3) Albuterol/Ipratropium 3 ml 12/10/20 13:00 12/12/20 15:18 Ipratropium/Albuterol Sulfate 3 Ml Neb NEB 3 ml [id number] BEATA Administration Allopurinol 300 mg 12/11/20 09:00 12/12/20 05:38 Allopurinol 300 Mg Tab PO 300 mg DAILY BEATA Administration Ascorbic Acid 1,000 mg 12/11/20 09:00 12/12/20 05:38 Ascorbic Acid 500 Mg Chewable Tablet PO 1,000 mg DAILY BEATA Administration Aspirin 81 mg 12/10/20 09:00 12/12/20 05:39 Aspirin 81 Mg Enteric Coated Tablet PO 81 mg DAILY BEATA Administration Atorvastatin Calcium 40 mg 12/09/20 21:00 12/11/20 22:01 Atorvastatin Calcium 40 Mg Tab PO 40 mg HS BEATA Administration Azithromycin 500 mg 12/10/20 09:00 12/12/20 05:39 Azithromycin 250 Mg Tab PO 12/13/20 09:01 500 mg DAILY BEATA Administration Brimonidine Tartrate 1 drop 12/10/20 15:00 12/12/20 14:38 Brimonidine Tartrate 0.2% Ophth Soln 5 Ml Bottle EA EYE 1 drop TID BEATA Administration Cholecalciferol 2,000 units 12/11/20 09:00 12/12/20 05:38 Cholecalciferol 1,000 Units (25 Mcg) Tab PO 2,000 units DAILY BEATA Administration Cholestyramine Resin 4 gm 12/11/20 10:00 12/12/20 11:40 Cholestyramine/Aspartame 4 Gm Packet PO 4 gm 1000 BEATA Administration Coenzyme Q10 100 mg 12/11/20 09:00 12/12/20 05:39 Ubidecarenone 50 Mg Cap PO 100 mg DAILY BEATA Administration Cyanocobalamin 100 mcg 12/10/20 14:00 12/10/20 14:58 Cyanocobalamin 1000 Mcg/Ml Vial SC 100 mcg Q28D BEATA Administration Dronedarone 400 mg 12/12/20 17:00 12/12/20 17:03 Dronedarone Hcl 400 Mg Tab PO 400 mg BID-WM BEATA Administration Escitalopram Oxalate 10 mg 12/11/20 09:00 12/12/20 05:39 Escitalopram Oxalate 10 Mg Tablet PO 10 mg DAILY BEATA Administration Famotidine 20 mg 12/10/20 21:00 12/11/20 22:00 Famotidine 20 Mg Tab PO 20 mg HS BEATA Administration Ferrous Sulfate 325 mg 12/11/20 08:00 12/12/20 05:38 Ferrous Sulfate 325 Mg Tab PO 325 mg QAM-WM BEATA Administration Gabapentin 300 mg 12/10/20 21:00 12/11/20 22:00 Gabapentin 300 Mg Cap PO 300 mg HS BEATA Administration Ceftriaxone Sodium 1 gm/ 100 mls @ 200 mls/hr 12/09/20 14:00 12/12/20 14:38 Sodium Chloride IVPB 100 mls Q24HR BEATA Administration Sodium Chloride 1,000 mls @ 80 mls/hr 12/12/20 11:08 12/12/20 11:42 Normal Saline 0.9% IV 12/12/20 18:00 1,000 mls .[id number] BEATA Administration Insulin Human Lispro 0 units 12/09/20 17:15 12/12/20 16:55 Humalog 300 Units/3 Ml Vial SC 10 unit .MODERATE SLIDING SC PRN Administration MODERATE SLIDING SCALE Protocol Insulin Human Lispro 0 units 12/10/20 21:17 12/11/20 22:05 Humalog 300 Units/3 Ml Vial SC 5 unit .BEDTIME SLIDING SC PRN Administration Bedtime Correctional Scale Levothyroxine Sodium 75 mcg 12/11/20 06:00 12/12/20 05:39 Levothyroxine Sodium 75 Mcg Tab PO 75 mcg 0600 BEATA Administration Midodrine 5 mg 12/10/20 15:00 12/12/20 14:38 Midodrine Hcl 5 Mg Tab PO 5 mg TID BEATA Administration Mirtazapine 7.5 mg 12/10/20 21:00 12/11/20 22:01 Mirtazapine 15 Mg Tab PO 7.5 mg HS BEATA Administration Mometasone Furoate/Formoterol Fumar 2 puff 12/10/20 18:30 12/12/20 07:15 Mometasone 200 Mcg/Formoterol 5 Mcg 120 Puff Inhaler INH 2 puff BID-RT BEATA Administration Ranolazine 1,000 mg 12/10/20 21:00 12/12/20 05:39 Ranolazine 500 Mg Tab PO 1,000 mg BID BEATA Administration Tamsulosin HCl 0.4 mg 12/10/20 21:00 12/11/20 22:01 Tamsulosin Hcl 0.4 Mg Cap PO 0.4 mg HS BEATA Administration - Exam General - other findings: Obese Eye: anicteric sclera ENT: no oropharyngeal lesions Neck: supple Heart: RRR Respiratory: CTAB Respiratory - other findings: Absent breath sounds on left Gastrointestinal: soft, non-tender Extremities: no edema Skin: no rashes Musculoskeletal: no muscle wasting Psychiatric: normal affect, normal behavior Hosp A/P (1) NSTEMI (non-ST elevated myocardial infarction) Code(s): I21.4 - NON-ST ELEVATION (NSTEMI) MYOCARDIAL INFARCTION Status: Acute (2) Acute respiratory failure with hypoxia Code(s): J96.01 - ACUTE RESPIRATORY FAILURE WITH HYPOXIA Status: Acute (3) Volume overload Code(s): E87.70 - FLUID OVERLOAD, UNSPECIFIED Status: Acute (4) Acute CHF Code(s): I50.9 - HEART FAILURE, UNSPECIFIED Status: Acute Qualifiers: Heart failure type: unspecified Qualified Code(s): I50.9 - Heart failure, unspecified (5) DM2 (diabetes mellitus, type 2) Status: Chronic (6) Hypothyroidism Code(s): E03.9 - HYPOTHYROIDISM, UNSPECIFIED Status: Chronic (7) BPH (benign prostatic hyperplasia) Code(s): N40.0 - BENIGN PROSTATIC HYPERPLASIA WITHOUT LOWER URINRY TRACT SYMP Status: Chronic - Plan Status post cardiac catheterization. Patient has RCA 75% ostial lesion with calcification. Patient will need transfer to tertiary center for [place] angioplasty. Appreciate pulmonary service input. Switch to oral steroids. Hypertension controlled and stable. Continue dronedarone. Continue levothyroxine. Decreased TSH, normal free T4.
--- NOTE | 2020-12-12 17:41 | PRG ---
DATE OF SERVICE: 12/12/2020 SUBJECTIVE: Denzel Lane is afebrile. Heart rate is 80, respiratory rate is 18, oximetry is 98%, and blood pressure 108/55. He is going down for his heart catheterization. This revealed a patent left main stent, patent LAD stent, 40% circumflex lesion with distal disease and 75% ostial right coronary lesion. The lesion was calcified stent was placed. He does not appear to be having any lung issues at this time. I met with his and answered her questions. Job ID: [id number]
--- NOTE | 2020-12-12 18:09 | PRG ---
DATE OF SERVICE: 12/12/[address] underwent cardiac catheterization today. The left coronary system did not have critical obstructions due to the patent stent in his left main and LAD. Diffuse distal atherosclerosis, but he has an ostial lesion in the right coronary artery. The 5-Italian catheter and even the 4-Italian ventricularized. Calcium in the proximal right coronary. Concerned that his balloon may not expand adequately to place a stent. Discussed with Dr. Ornelas in [place]. We discussed to having a cutting balloon would be the best option. Likely will need cutting balloon angioplasty prior to stent deployment to get an adequate result. They plan on transferring to [place] if the cutting balloons are not available here. I think this is best option. Job ID: [id number]
[2020-12-12] MEDS: Atorvastatin Calcium 40 MG TAB PO SCH (21:11)
[2020-12-12] MEDS: Famotidine 20 MG TAB PO SCH (21:11)
[2020-12-12] MEDS: Mirtazapine 15 MG TAB PO SCH (21:12)
[2020-12-12] MEDS: Gabapentin 300 MG CAP PO SCH (21:12)
[2020-12-12] MEDS: Tamsulosin HCl 0.4 MG CAP PO SCH (21:14)
[2020-12-13 04:58] LABS: Anion Gap 15 mmol/L (10-20); BUN (Urea Nitrogen) 51 mg/dL (8.4-25.7); Calc. Creatinine Clearance 55 mL/min (70-130); Calcium 7.4 mg/dL (7.8-10.44); Carbon Dioxide 24 mmol/L (23-31); Chloride 105 mmol/L (98-107); Glucose 361 mg/dL (83-110); Potassium 3.9 mmol/L (3.5-5.1); Sodium 140 mmol/L (136-145)
[2020-12-13] MEDS: Levothyroxine Sodium 75 MCG TAB PO SCH (06:00)
[2020-12-13] MEDS: HumaLOG 300 UNITS/3 ML VIAL SC PRN ×4 (06:01→21:08)
[2020-12-13] MEDS ORDERED: predniSONE 50 MG TAB PO SCH (08:00)
[2020-12-13] MEDS: Allopurinol 300 MG TAB PO SCH (09:08)
[2020-12-13] MEDS: Cholecalciferol 1,000 UNITS (25 MCG) TAB PO SCH (09:08)
[2020-12-13] MEDS: Brimonidine Tartrate 0.2% Ophth Soln 5 ml Bottle EA EYE SCH ×3 (09:08→20:05)
[2020-12-13] MEDS: Midodrine HCl 5 MG TAB PO SCH ×3 (09:09→20:03)
[2020-12-13] MEDS: Ubidecarenone 50 MG CAP PO SCH (09:09)
[2020-12-13] MEDS: Azithromycin 250 MG TAB PO SCH (09:09)
[2020-12-13] MEDS: Ascorbic Acid 500 mg Chewable Tablet PO SCH (09:09)
[2020-12-13] MEDS: Aspirin 81 mg Enteric Coated Tablet PO SCH (09:09)
[2020-12-13] MEDS: Dronedarone HCl 400 MG TAB PO SCH ×2 (09:09→17:36)
[2020-12-13] MEDS: Cholestyramine/Aspartame 4 gm Packet PO SCH (09:10)
[2020-12-13] MEDS: Ferrous Sulfate 325 MG TAB PO SCH (09:10)
[2020-12-13] MEDS: Escitalopram Oxalate 10 mg Tablet PO SCH (09:10)
[2020-12-13] MEDS ORDERED: Sodium Chloride 0.9% 1,000 ML IV SCH (09:15)
[2020-12-13] MEDS ORDERED: Clopidogrel Bisulfate 300 MG TAB PO SCH (09:15)
[2020-12-13] MEDS ORDERED: Enoxaparin Sodium 40 MG/0.4 ML SYRINGE SC SCH (09:15)
--- NOTE | 2020-12-13 09:46 | PRG ---
DATE OF SERVICE: 12/13/2020 SUBJECTIVE: Mr. Lane is doing fine. His oxygen saturations however dropped when he takes off the CPAP. OBJECTIVE: VITAL SIGNS: His blood pressure 113/56, pulse 88, it is regular. LUNGS: Clear. There is no wheezing. He has had a pneumonectomy, so there is decreased breath sounds on the left. CARDIAC: No new murmur, rub, or gallop. ABDOMEN: Soft, nontender. EXTREMITIES: There is no significant edema. LABORATORY DATA: Hemoglobin is 10.5. Creatinine is 1.8 today. Blood sugar slightly better at 299. The steroids were reduced. ASSESSMENT: 1. Coronary artery disease, severe as is outlined in the chart yesterday. He has a calcified ostial stenosis in the right coronary artery. 2. Stage 3 renal failure. Estimated GFR is 37. 3. Diabetes. 4. Previous pneumonectomy. 5. Sleep apnea. PLAN: 1. Attempting to arrange transfer to [place] for possible cutting balloon followed by stenting. 2. We will resume some fluid at 50 mL an hour of saline. Has to be careful to fluid. He has diastolic heart failure as well. 3. We will hold off on anticoagulation for now after least consideration for Eliquis. He has been maintaining sinus rhythm here and also will receive DVT prophylaxis with Lovenox. Anticipate him going home on Eliquis and dual antiplatelet drugs. Timing of resuming Eliquis per postal service mail processor in [place]. The family understands and prognosis is guarded. Job ID: [id number]
[2020-12-13] MEDS: Mometasone 200 MCG/Formoterol 5 MCG 120 PUFF INHALER INH SCH ×2 (10:55→18:54)
[2020-12-13] MEDS: cefTRIAXone\\ROCEPHIN 1 GM in Sodium Chloride 0.9% 100 ML IVPB SCH (14:37)
--- NOTE | 2020-12-13 16:12 | PDOC.DS.DS ---
Provider - Provider Date of Admission: 12/09/20 15:08 Date of Discharge: 12/13/20 Admitting Provider: Otilio Tijerina MD Consultations: Cardiology (Dr. Stephens) Primary Care Physician: Wilbur Caldwell Course - Hospital Course Hospital Course: Discharge diagnosis: 1. Non-ST elevation myocardial infarction 2. 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 Severe coronary artery disease 4. COVID-19 PCR test negative 5. Influenza test negative Hospital course: Patient is a pleasant 75-year-old gentleman who was admitted to the hospital on December 09, 2020 for non-ST elevation myocardial infarction. He was seen by cardiology and pulmonary services. 2D echocardiogram showed left ventricular ejection fraction of 45 to 50%, mild to moderate mitral regurgitation, no evidence of mitral valve stenosis, no aortic stenosis and moderate aortic insufficiency. On December 12 he underwent coronary angiography. He was found to have severe coronary artery disease and calcified ostial stenosis in the right coronary artery. He needed to be transferred to a tertiary care facility for possible [place] followed by stenting. Cardiology service arranged for transfer to [place]. Many thanks for allowing me to participate in your patient's care. Please feel free to contact me with any questions or concerns. Discharge destination: Tertiary care hospital in [place] Total amount of time spent coordinating this discharge: 33 minutes Resuscitation Status: 12/10/20 10:47 Resuscitation Status Routine Resuscitation Status: DNAR: NO Resuscitation Discussed with: patient - Labs Lab Results: 12/10/20 04:22 12/13/20 04:17 Abnormal Lab Results - Last 48 hrs 12/12/20 04:29: BUN 47 H, Creatinine 1.79 H 12/13/20 04:17: BUN 51 H, Creatinine 1.80 H, Calcium 7.4 L - Physical Exam Vitals: Vital Signs (12 hours) Temp Pulse Pulse Pulse Resp BP BP 12/13/20 15:26 80 20 12/13/20 10:33 82 81 120/58 L 168/71 H 12/13/20 10:21 80 16 12/13/20 07:43 12/13/20 07:40 97.7 F 88 20 12/13/20 04:48 97.6 F 86 21 H BP Pulse Ox Pulse Ox 12/13/20 15:26 12/13/20 10:33 96 12/13/20 10:21 12/13/20 07:43 100 12/13/20 07:40 113/56 L 92 L 12/13/20 04:48 107/51 L 98 Weight Weight 251 lb 3.2 oz Physical Exam: The patient was seen and examined on the day of discharge. Patient denies chest pain or shortness of breath. Vital signs are stable. S1 and S2 are heard. Lungs are clear to auscultation bilaterally. Problem - Problem (1) NSTEMI (non-ST elevated myocardial infarction) Code(s): I21.4 - NON-ST ELEVATION (NSTEMI) MYOCARDIAL INFARCTION Status: Acute (2) Acute respiratory failure with hypoxia Code(s): J96.01 - ACUTE RESPIRATORY FAILURE WITH HYPOXIA Status: Acute (3) Volume overload Code(s): E87.70 - FLUID OVERLOAD, UNSPECIFIED Status: Acute (4) Acute CHF Code(s): I50.9 - HEART FAILURE, UNSPECIFIED Status: Acute Qualifiers: Heart failure type: unspecified Qualified Code(s): I50.9 - Heart failure, unspecified (5) DM2 (diabetes mellitus, type 2) Status: Chronic (6) Hypothyroidism Code(s): E03.9 - HYPOTHYROIDISM, UNSPECIFIED Status: Chronic (7) BPH (benign prostatic hyperplasia) Code(s): N40.0 - BENIGN PROSTATIC HYPERPLASIA WITHOUT LOWER URINRY TRACT SYMP Status: Chronic Plan - Discharge Medications Home Medications: Medication Instructions Recorded Confirmed Type Allopurinol [Zyloprim] 300 mg PO DAILY 12/09/20 12/09/20 History Ascorbic Acid [Vitamin C] 1,000 mg PO DAILY 12/09/20 12/09/20 History Atorvastatin Calcium [Lipitor] 80 mg PO HS 12/09/20 12/09/20 History Brimonidine Tartrate [Alphagan P 1 drop L EYE BID 12/09/20 12/09/20 History 0.1% Ophth Soln] Budesonide-Formoterol [Symbicort 1 puff INH BID 12/09/20 12/09/20 History 160-4.5] Clopidogrel Bisulfate [Plavix] 75 mg PO DAILY 12/09/20 12/09/20 History Colesevelam HCl [Welchol] 625 mg PO BID-AC 12/09/20 12/09/20 History Cyanocobalamin (Vitamin B-12) 100 mcg SC Q28D 12/09/20 12/09/20 History [Cyanocobalamin Injection] Dabigatran [Pradaxa] 75 mg PO HS 12/09/20 12/09/20 History Ergocalciferol (Vitamin D2) 2,000 unit PO DAILY 12/09/20 12/09/20 History [Vitamin D2] Escitalopram Oxalate [Lexapro] 10 mg PO DAILY 12/09/20 12/09/20 History Famotidine [Pepcid AC] 20 mg PO HS 12/09/20 12/09/20 History Ferrous Sulfate [Iron] 325 mg PO DAILY 12/09/20 12/09/20 History Gabapentin 300 mg PO HS 12/09/20 12/09/20 History Levothyroxine Sodium [Levoxyl] 75 mcg PO DAILY 12/09/20 12/09/20 History Midodrine HCl [ProAmatine] 5 mg PO TID 12/09/20 12/09/20 History Mirtazapine 7.5 mg PO HS 12/09/20 12/09/20 History Nitroglycerin [Nitroglycerin Patch] 0.4 mg TD DAILY 12/09/20 12/09/20 History Ranolazine [Ranexa] 1,000 mg PO BID 12/09/20 12/09/20 History Tamsulosin HCl [Flomax] 0.4 mg PO HS 12/09/20 12/09/20 History Ubidecarenone [Co Q-10] 100 mg PO DAILY 12/09/20 12/09/20 History Umeclidinium [place] [Incruse 1 inh IH DAILY 12/09/20 12/09/20 History Ellipta] traZODone HCl [Desyrel] 100 mg PO HS 12/09/20 12/09/20 History Allergies: morphine Allergy (Verified 12/10/20 08:04) - Follow up Plan Referrals: Cardiac Rehab - [facility] [Outside] - 7 Days (Your doctor has ordered outpatient cardiac rehab for you to begin within 1-2 weeks after you go home from the hospital. The location nearest to you is the [facility]. We will call you in 3-5 days to get you scheduled for your evaluation. If you do not receive a call, please reach out to us at [phone] and request an appointment.) Wilbur Caldwell MD [Primary Care Provider] - Disposition: HOME Quality - Care Measures CORE MEASURES:: AMI - Stroke/TIA Did you prescribe antithrombotic therapy?: Yes Did you prescribe anticoagulant for A Fib/Flutter?: No Specify reason for no DC anticoagulant: Treatment not indicated Did you prescribe a statin medication?: Yes
[2020-12-13 20:02] VITALS: BP 115/56; TEMP 97.6
[2020-12-13] MEDS: Gabapentin 300 MG CAP PO SCH (20:03)
[2020-12-13] MEDS: Famotidine 20 MG TAB PO SCH (20:04)
[2020-12-13] MEDS: Tamsulosin HCl 0.4 MG CAP PO SCH (20:04)
[2020-12-13] MEDS: Mirtazapine 15 MG TAB PO SCH (20:04)
[2020-12-13] MEDS: Atorvastatin Calcium 40 MG TAB PO SCH (20:04)
[2020-12-14] MEDS ORDERED: Clopidogrel Bisulfate 75 MG TAB PO SCH (09:00)
[2020-12-14] MEDS ORDERED: Enoxaparin Sodium 40 MG/0.4 ML SYRINGE SC SCH (09:00)
--- NOTE | 2020-12-14 13:37 | EKG ---
Test Reason : Blood Pressure : / mmHG Vent. Rate : 099 BPM Atrial Rate : 099 BPM P-R Int : 188 ms QRS Dur : 100 ms QT Int : 380 ms P-R-T Axes : 074 000 118 degrees QTc Int : 487 ms Sinus rhythm with Premature atrial complexes Marked ST abnormality, possible lateral subendocardial injury Prolonged QT Abnormal ECG Confirmed by ULISES PRESLEY, ALLISON ([id number]), pictures editor MERLIN PERES ([id number]) on 12/14/2020 1:37:19 PM Referred By: Confirmed By:ALLISON MONTGOMERY MD
--- NOTE | 2020-12-14 13:37 | EKG ---
Test Reason : Blood Pressure : / mmHG Vent. Rate : 091 BPM Atrial Rate : 094 BPM P-R Int : 000 ms QRS Dur : 100 ms QT Int : 378 ms P-R-T Axes : 000 -08 117 degrees QTc Int : [address] elevation consider inferior injury or acute infarct ACUTE WA / STEMI Consider right ventricular involvement in acute inferior infarct Abnormal ECG Confirmed by ULISES PRESLEY, ALLISON ([id number]), sound editor MERLIN PERES ([id number]) on 12/14/2020 1:37:17 PM Referred By: Confirmed By:ALLISON MONTGOMERY MD
== END 2020-12-13 21:19 | disposition home or self-care (01) | DRG 280 ==
LOC: ERS 09:54 → 2NO 15:08
PROVIDERS: ADMIT Internal Medicine; ATTEND Internal Medicine
PROC: 4A023N7 Measurement of Cardiac Sampling and Pressure, Left Heart, Percutaneous Approach (ICD-10-PCS; principal; 2020-12-12)
PROC: B2151ZZ Fluoroscopy of Left Heart using Low Osmolar Contrast (ICD-10-PCS; 2020-12-12)
PROC: B2111ZZ Fluoroscopy of Multiple Coronary Arteries using Low Osmolar Contrast (ICD-10-PCS; 2020-12-12)
DX: I21.4 Non-ST elevation (NSTEMI) myocardial infarction (principal); J96.01 Acute respiratory failure with hypoxia; I50.33 Acute on chronic diastolic (congestive) heart failure; I13.0 Hypertensive heart and chronic kidney disease with heart failure and stage 1 through stage 4 chronic kidney disease, or unspecified chronic kidney disease; D68.9 Coagulation defect, unspecified; Z20.822 Contact with and (suspected) exposure to COVID-19; I25.10 Atherosclerotic heart disease of native coronary artery without angina pectoris; Z95.5 Presence of coronary angioplasty implant and graft; J44.9 Chronic obstructive pulmonary disease, unspecified; I48.91 Unspecified atrial fibrillation; E11.22 Type 2 diabetes mellitus with diabetic chronic kidney disease; D63.1 Anemia in chronic kidney disease; K90.0 Celiac disease; F41.9 Anxiety disorder, unspecified; E78.5 Hyperlipidemia, unspecified; G47.30 Sleep apnea, unspecified; E03.9 Hypothyroidism, unspecified; F32.9 Major depressive disorder, single episode, unspecified; Z85.118 Personal history of other malignant neoplasm of bronchus and lung; Z99.81 Dependence on supplemental oxygen; Z88.5 Allergy status to narcotic agent; Z87.891 Personal history of nicotine dependence; Z79.01 Long term (current) use of anticoagulants; Z79.890 Hormone replacement therapy; Z79.899 Other long term (current) drug therapy; N40.0 Benign prostatic hyperplasia without lower urinary tract symptoms; N18.30 Chronic kidney disease, stage 3 unspecified; T45.515A Adverse effect of anticoagulants, initial encounter
CPT/HCPCS: 0240U; 36415; 36416; 71045; 76942; 80048; 80053; 80061; 82550; 82553; 83036; 83880; 84439; 84443; 84484; 85025; 85610; 85730; 86850; 86900; 86901; 93005; 93306; 93458; 93798; 94664; 94760; 96372; 96374; J0696; J1644; J1650; J1940; J2001; J2250; J2920; J3010; J3420; J3490; J7512; J7620; Q9967

== ENCOUNTER 2021-03-27 14:05 | Outpatient (CLI) | payer MEDICARE, OTHER | END 2021-03-27 14:06 | disposition home or self-care (01) | LOC: BICRAD 14:05 | PROVIDERS: ATTEND Urology | DX: C67.9 Malignant neoplasm of bladder, unspecified (principal); N40.1 Benign prostatic hyperplasia with lower urinary tract symptoms; N20.0 Calculus of kidney; N28.89 Other specified disorders of kidney and ureter | CPT/HCPCS: 74018 ==

== ENCOUNTER 2021-05-21 11:19 | Outpatient (CLI) | payer MEDICARE, OTHER | END 2021-05-21 11:20 | disposition home or self-care (01) | LOC: CT 11:19 | PROVIDERS: ATTEND Internal Medicine Critical Care Medicine | DX: C34.90 Malignant neoplasm of unspecified part of unspecified bronchus or lung (principal) | CPT/HCPCS: 71250 ==

== ENCOUNTER 2021-09-17 10:22 | Outpatient (CLI) | payer MEDICARE, OTHER | END 2021-09-17 10:23 | disposition home or self-care (01) | LOC: BICRAD 10:22 | PROVIDERS: ATTEND Urology | DX: C67.9 Malignant neoplasm of bladder, unspecified (principal); N40.1 Benign prostatic hyperplasia with lower urinary tract symptoms; N28.89 Other specified disorders of kidney and ureter | CPT/HCPCS: 36415; 74018; 80053; 80061; 82043; 83036 ==

== ENCOUNTER 2022-06-24 14:21 | Outpatient (CLI) | payer MEDICARE, OTHER | END 2022-06-24 14:22 | disposition home or self-care (01) | LOC: BICCT 14:21 | PROVIDERS: ATTEND Urology | DX: C67.9 Malignant neoplasm of bladder, unspecified (principal); E79.0 Hyperuricemia without signs of inflammatory arthritis and tophaceous disease; N20.0 Calculus of kidney; E27.8 Other specified disorders of adrenal gland; N28.89 Other specified disorders of kidney and ureter | CPT/HCPCS: 74176 ==

== ENCOUNTER 2022-10-09 08:37 | Emergency (ER) | payer MEDICARE, OTHER ==
[2022-10-09 10:02] LABS: Clarity Extra Turbid (Clear)
[2022-10-09 10:03] LABS: Bilirubin Unable to Interpret (Negative); Blood, Urine Unable to Interpret (Negative); Glucose, Urine (Dipstick) Unable to Interpret mg/dL (Negative); Ketone, Urine Unable to Interpret mg/dL (Negative); Leukocyte Unable to Interpret (Negative); Nitrite Unable to Interpret (Negative); Protein, Urine (Dipstick) Unable to Interpret mg/dL (Neg-Trace); Specific Gravity, Urine 1.024 (1.002-1.036); Urobilinogen UNABLE TO INTERPRET mg/dL (Less than 2); pH, Urine 7.2 (5.0-9.0)
[2022-10-09 10:04] LABS: #Eosinphils 0.2 thou/uL (0.0-0.7); #Monocytes 0.8 thou/uL (0.11-0.59); #Neutrophils 8.2 thou/uL (1.40-6.50); %Basophils 0.1 % (0.0-1.0); %Eosinophils 1.8 % (0.0-10.0); %Lymphocytes 9.9 % (21.0-51.0); %Monocytes 8.1 % (0.0-10.0); %Neutrophils 80.1 % (42.0-75.0); Hemoglobin 9.6 g/dL (14.0-18.0); Mean Corpuscular HGB CONC 31.8 g/dL (32.0-36.0); Mean Corpuscular Hemoglobin 33.1 pg (27.0-31.0); Mean Platelet Volume 7.7 fL (7.4-10.4); Platelet Count 251 10x3/uL (130-400); RBC Distribution Width 13.4 % (11.5-14.5); Red Blood Cell (RBC) Count 2.89 mill/uL (4.70-6.10); White Blood Cell (WBC) Count 10.3 10x3/uL (4.8-10.8)
[2022-10-09 10:05] LABS: RBC/HPF Greater than 50 HPF (0-3)
[2022-10-09 10:06] LABS: Bacteria/HPF None Seen HPF (None Seen); Squamous Epithelial 0-3 HPF (0-3); WBC/HPF 0-3 HPF (0-3)
[2022-10-09 10:25] LABS: ALT (SGPT) 15 U/L (8-55); AST (SGOT) 13 U/L (5-34); Albumin 3.2 g/dL (3.4-4.8); Alkaline Phosphatase 124 U/L (40-110); Anion Gap 16 mmol/L (10-20); BUN (Urea Nitrogen) 60 mg/dL (8.4-25.7); Bilirubin, Total 0.9 mg/dL (0.2-1.2); Calc. Creatinine Clearance 0 mL/min (70-130); Calcium 8.6 mg/dL (7.8-10.44); Carbon Dioxide 22 mmol/L (23-31); Chloride 103 mmol/L (98-107); Estimated GFR 15; Globulin 2.7 g/dL (2.4-3.5); Glucose 299 mg/dL (83-110); Potassium 5.1 mmol/L (3.5-5.1); Protein, Total 5.9 g/dL (5.8-8.1); Sodium 136 mmol/L (136-145)
== END 2022-10-09 11:09 | disposition home or self-care (01) ==
LOC: MERGE 08:37 → ERS 08:37
DX: R33.9 Retention of urine, unspecified (principal); R31.9 Hematuria, unspecified; E11.9 Type 2 diabetes mellitus without complications; E78.00 Pure hypercholesterolemia, unspecified; E11.22 Type 2 diabetes mellitus with diabetic chronic kidney disease; N18.4 Chronic kidney disease, stage 4 (severe); I50.9 Heart failure, unspecified; D64.9 Anemia, unspecified
CPT/HCPCS: 36415; 51702; 80053; 81003; 81015; 85025

== ENCOUNTER 2022-10-11 11:24 | Emergency (ER) | payer MEDICARE, OTHER ==
[2022-10-11 12:01] LABS: #Eosinphils 0.5 thou/uL (0.0-0.7); #Lymphocytes 0.9 thou/uL (1.20-3.40); #Monocytes 0.6 thou/uL (0.11-0.59); #Neutrophils 5.1 thou/uL (1.40-6.50); %Basophils 0.2 % (0.0-1.0); %Eosinophils 6.4 % (0.0-10.0); %Lymphocytes 13.2 % (21.0-51.0); %Monocytes 7.8 % (0.0-10.0); %Neutrophils 72.4 % (42.0-75.0); Hemoglobin 8.9 g/dL (14.0-18.0); Mean Corpuscular Hemoglobin 33.8 pg (27.0-31.0); Mean Platelet Volume 7.5 fL (7.4-10.4); Platelet Count 288 10x3/uL (130-400); RBC Distribution Width 13.2 % (11.5-14.5); Red Blood Cell (RBC) Count 2.63 mill/uL (4.70-6.10); White Blood Cell (WBC) Count 7.1 10x3/uL (4.8-10.8)
[2022-10-11 12:23] LABS: ALT (SGPT) 17 U/L (8-55); AST (SGOT) 12 U/L (5-34); Albumin 3.4 g/dL (3.4-4.8); Alkaline Phosphatase 127 U/L (40-110); Anion Gap 15 mmol/L (10-20); BUN (Urea Nitrogen) 59 mg/dL (8.4-25.7); Bilirubin, Total 0.5 mg/dL (0.2-1.2); Calc. Creatinine Clearance 0 mL/min (70-130); Calcium 8.8 mg/dL (7.8-10.44); Carbon Dioxide 26 mmol/L (23-31); Chloride 103 mmol/L (98-107); Estimated GFR 16; Globulin 2.8 g/dL (2.4-3.5); Glucose 240 mg/dL (83-110); Potassium 4.5 mmol/L (3.5-5.1); Protein, Total 6.2 g/dL (5.8-8.1); Sodium 139 mmol/L (136-145)
[2022-10-11 13:04] LABS: Clarity Cloudy (Clear); Specific Gravity, Urine 1.021 (1.002-1.036)
[2022-10-11 13:06] LABS: pH, Urine 5.9 (5.0-9.0)
[2022-10-11 13:16] LABS: Leukocyte Unable to Interpret Leu/uL (Negative); Nitrite Unable to Interpret (Negative); Protein, Urine (Dipstick) Unable to Interpret mg/dL (Neg-Trace)
[2022-10-11 13:17] LABS: Glucose, Urine (Dipstick) Unable to Interpret mg/dL (Negative); Ketone, Urine Unable to Interpret mg/dL (Negative); Urobilinogen UNABLE TO INTERPRET mg/dL (Less than 2)
[2022-10-11 13:18] LABS: Bilirubin Unable to Interpret (Negative); Blood, Urine Unable to Interpret (Negative)
[2022-10-11 13:20] LABS: Bacteria/HPF None Seen HPF (None Seen); RBC/HPF Greater than 50 HPF (0-3); Squamous Epithelial 0-3 HPF (0-3); WBC/HPF Greater Than 50 HPF (0-3)
== END 2022-10-11 14:19 | disposition home or self-care (01) ==
LOC: ERS 11:24
DX: N39.0 Urinary tract infection, site not specified (principal); E03.9 Hypothyroidism, unspecified; E78.5 Hyperlipidemia, unspecified; E11.22 Type 2 diabetes mellitus with diabetic chronic kidney disease; I13.0 Hypertensive heart and chronic kidney disease with heart failure and stage 1 through stage 4 chronic kidney disease, or unspecified chronic kidney disease; N18.4 Chronic kidney disease, stage 4 (severe); Z87.891 Personal history of nicotine dependence
CPT/HCPCS: 80053; 81003; 81015; 85025; 86850; 86900; 86901; 93005; 94760

== ENCOUNTER 2022-10-12 13:56 | Inpatient (IN) | payer MEDICARE, OTHER ==
[2022-10-12 14:39] LABS: #Eosinphils 0.3 thou/uL (0.0-0.7); #Lymphocytes 1.1 thou/uL (1.20-3.40); #Neutrophils 6.3 thou/uL (1.40-6.50); %Basophils 0.1 % (0.0-1.0); %Eosinophils 3.9 % (0.0-10.0); %Lymphocytes 12.2 % (21.0-51.0); %Neutrophils 72.8 % (42.0-75.0); Hemoglobin 8.9 g/dL (14.0-18.0); Mean Corpuscular HGB CONC 33.2 g/dL (32.0-36.0); Mean Corpuscular Hemoglobin 33.8 pg (27.0-31.0); Mean Platelet Volume 7.2 fL (7.4-10.4); Platelet Count 271 10x3/uL (130-400); RBC Distribution Width 13.2 % (11.5-14.5); Red Blood Cell (RBC) Count 2.63 mill/uL (4.70-6.10); White Blood Cell (WBC) Count 8.7 10x3/uL (4.8-10.8)
[2022-10-12 14:50] LABS: INR-International Normal Ratio 1.2; Prothrombin Time 16.1 sec (12.0-14.7)
[2022-10-12 14:51] LABS: PTT 32.4 sec (22.9-36.1)
[2022-10-12 14:57] LABS: ALT (SGPT) 16 U/L (8-55); AST (SGOT) 14 U/L (5-34); Albumin 3.5 g/dL (3.4-4.8); Alkaline Phosphatase 141 U/L (40-110); Anion Gap 15 mmol/L (10-20); BUN (Urea Nitrogen) 53 mg/dL (8.4-25.7); Bilirubin, Total 0.5 mg/dL (0.2-1.2); Calc. Creatinine Clearance 0 mL/min (70-130); Carbon Dioxide 27 mmol/L (23-31); Chloride 103 mmol/L (98-107); Estimated GFR 16; Glucose 263 mg/dL (83-110); Potassium 4.5 mmol/L (3.5-5.1); Protein, Total 6.5 g/dL (5.8-8.1); Sodium 140 mmol/L (136-145)
[2022-10-12 15:19] LABS: CKMB 3.1 ng/mL (0-6.6)
[2022-10-12] MEDS ORDERED: Phenazopyridine HCl 95 MG TAB PO PRN (15:52)
[2022-10-12 16:12] LABS: Bilirubin Negative (Negative); Blood, Urine 3+ (Negative); Clarity Clear (Clear); Glucose, Urine (Dipstick) Greater than 1000 mg/dL (Negative); Ketone, Urine Negative (Negative); Leukocyte Negative Leu/uL (Negative); Nitrite Negative (Negative); Protein, Urine (Dipstick) Negative (Neg-Trace); RBC/HPF Greater than 50 HPF (0-3); Specific Gravity, Urine 1.007 (1.002-1.036); Squamous Epithelial 0-3 HPF (0-3); Urobilinogen Normal mg/dL (Less than 2); WBC/HPF 0-3 HPF (0-3)
[2022-10-12 16:13] LABS: Bacteria/HPF 1+ HPF (None Seen)
[2022-10-12] MEDS ORDERED: HumaLOG 300 UNITS/3 ML VIAL SC PRN (17:02)
[2022-10-12] MEDS ORDERED: Dextrose 5% in Water 1,000 ML IV PRN (17:02)
[2022-10-12] MEDS ORDERED: Acetaminophen 325 MG TAB PO PRN (17:02)
[2022-10-12] MEDS ORDERED: Dextrose 50% Abboject 50 ML SYRINGE SLOW IVP PRN (17:02)
[2022-10-12] MEDS ORDERED: Metoclopramide HCl 10 MG/2 ML VIAL IVP PRN (17:11)
[2022-10-12] MEDS ORDERED: traZODone HCl 50 MG TAB PO PRN (17:12)
[2022-10-12] MEDS ORDERED: Senokot S 8.6-50 MG TAB PO PRN (17:32)
[2022-10-12] MEDS: Sodium Chloride 0.9% 1,000 ML IV SCH (18:52)
[2022-10-12] MEDS: Polyethylene Glycol 3350 17 GM Packet PO SCH (18:52)
[2022-10-12 18:53] VITALS: BMI 31.0
[2022-10-12] MEDS ORDERED: FENTANYL 50 MCG/ML 1 ML VIAL SLOW IVP SCH (20:30)
[2022-10-12] MEDS ORDERED: Atorvastatin Calcium 40 MG TAB PO SCH (21:00)
[2022-10-12] MEDS ORDERED: Phenazopyridine HCl 100 MG TAB PO PRN (21:15)
[2022-10-12] MEDS: Trospium 20 MG TAB PO SCH (21:42)
[2022-10-12] MEDS: Loratadine 10 MG TAB PO SCH (21:42)
[2022-10-12] MEDS: Mirtazapine 15 MG TAB PO SCH (21:43)
[2022-10-12] MEDS: Famotidine 20 MG TAB PO SCH (21:43)
[2022-10-13 05:18] LABS: #Eosinphils 0.2 thou/uL (0.0-0.7); #Lymphocytes 1.3 thou/uL (1.20-3.40); #Monocytes 1.4 thou/uL (0.11-0.59); #Neutrophils 6.8 thou/uL (1.40-6.50); %Basophils 0.2 % (0.0-1.0); %Eosinophils 2.5 % (0.0-10.0); %Monocytes 14.6 % (0.0-10.0); %Neutrophils 69.7 % (42.0-75.0); Hemoglobin 7.8 g/dL (14.0-18.0); Mean Corpuscular HGB CONC 31.4 g/dL (32.0-36.0); Mean Corpuscular Hemoglobin 32.8 pg (27.0-31.0); Mean Platelet Volume 7.5 fL (7.4-10.4); Platelet Count 280 10x3/uL (130-400); RBC Distribution Width 13.4 % (11.5-14.5); Red Blood Cell (RBC) Count 2.37 mill/uL (4.70-6.10); White Blood Cell (WBC) Count 9.8 10x3/uL (4.8-10.8)
[2022-10-13 05:45] LABS: Anion Gap 14 mmol/L (10-20); BUN (Urea Nitrogen) 52 mg/dL (8.4-25.7); Calc. Creatinine Clearance 23 mL/min (70-130); Calcium 8.5 mg/dL (7.8-10.44); Carbon Dioxide 24 mmol/L (23-31); Chloride 107 mmol/L (98-107); Estimated GFR 17; Glucose 123 mg/dL (83-110); Potassium 4.4 mmol/L (3.5-5.1); Sodium 141 mmol/L (136-145)
[2022-10-13] MEDS: Levothyroxine Sodium 75 MCG TAB PO SCH (06:10)
[2022-10-13] MEDS: Sodium Chloride 0.9% 1,000 ML IV SCH ×2 (06:12→20:53)
[2022-10-13 08:34] VITALS: BP 109/53
[2022-10-13] MEDS ORDERED: Iopamidol 30 ML ONE (08:50)
[2022-10-13] MEDS ORDERED: fentaNYL PF 100 MCG/2 ML SYRINGE ONE (08:59)
[2022-10-13] MEDS ORDERED: Famotidine/PF 20 mg/2ml Vial ONE (09:00)
[2022-10-13] MEDS ORDERED: Insulin Glargine 30 UNITS/0.3 ML VIAL SC SCH (09:00)
[2022-10-13] MEDS ORDERED: SUGAMMADEX SODIUM 200 MG/2 ML VIAL ONE (09:00)
[2022-10-13] MEDS ORDERED: Clopidogrel Bisulfate 75 MG TAB PO SCH (09:00)
[2022-10-13] MEDS ORDERED: Aspirin 81 mg Enteric Coated Tablet PO SCH (09:00)
[2022-10-13] MEDS ORDERED: Metoclopramide HCl 10 MG/2 ML VIAL ONE (09:42)
[2022-10-13] MEDS ORDERED: ePHEDrine 50 MG/ML VIAL ONE (09:42)
[2022-10-13] MEDS ORDERED: Ondansetron PF 4 MG/2 ML Vial ONE (09:42)
[2022-10-13] MEDS ORDERED: PHENYLEPHRINE-NS 100 MCG/ML 10 ML SYRINGE ONE (09:42)
[2022-10-13] MEDS ORDERED: Rocuronium Bromide 10 MG/ML (10ML VIAL) ONE (09:42)
[2022-10-13] MEDS ORDERED: Sodium Chloride 0.9% 100 ML ONE (09:56)
[2022-10-13] MEDS ORDERED: cefTRIAXone\\ROCEPHIN 2 GM VIAL ONE (09:56)
[2022-10-13] MEDS ORDERED: Nitroglycerin 0.4 MG TAB (25 Tab Bottle) ONE (16:33)
[2022-10-13] MEDS: Nitroglycerin 0.4 MG TAB (25 Tab Bottle) SL PRN ×2 (16:35→16:44)
[2022-10-13] MEDS ORDERED: NOREPINEPHRINE 8 MG/250 ML-D5W 250 ML IVPB PRN (17:37)
[2022-10-13 18:38] LABS: Hemoglobin 9.6 g/dL (14.0-18.0)
[2022-10-13] MEDS: Carvedilol 3.125 MG TAB PO SCH (19:39)
[2022-10-13] MEDS: cefTRIAXone\\ROCEPHIN 2 GM in Sodium Chloride 0.9% 100 ML IVPB SCH (19:39)
[2022-10-13] MEDS: Polyethylene Glycol 3350 17 GM Packet PO SCH (19:40)
[2022-10-13] MEDS: Allopurinol 100 MG TAB PO SCH (19:40)
[2022-10-13] MEDS: Trospium 20 MG TAB PO SCH ×2 (19:40→20:51)
[2022-10-13] MEDS: Escitalopram Oxalate 10 mg Tablet PO SCH (19:40)
[2022-10-13] MEDS: Tamsulosin HCl 0.4 MG CAP PO SCH (19:40)
[2022-10-13] MEDS: Mirtazapine 15 MG TAB PO SCH (20:51)
[2022-10-13] MEDS: Loratadine 10 MG TAB PO SCH (20:51)
[2022-10-13] MEDS: Famotidine 20 MG TAB PO SCH (20:52)
[2022-10-14 04:04] LABS: #Eosinphils 0.2 thou/uL (0.0-0.7); #Monocytes 1.8 thou/uL (0.11-0.59); #Neutrophils 10.6 thou/uL (1.40-6.50); %Basophils 0.2 % (0.0-1.0); %Eosinophils 1.3 % (0.0-10.0); %Lymphocytes 7.5 % (21.0-51.0); %Monocytes 12.9 % (0.0-10.0); Hemoglobin 8.8 g/dL (14.0-18.0); Mean Corpuscular HGB CONC 31.7 g/dL (32.0-36.0); Mean Corpuscular Hemoglobin 32.6 pg (27.0-31.0); Mean Platelet Volume 7.2 fL (7.4-10.4); Platelet Count 226 10x3/uL (130-400); RBC Distribution Width 15.5 % (11.5-14.5); Red Blood Cell (RBC) Count 2.69 mill/uL (4.70-6.10); White Blood Cell (WBC) Count 13.6 10x3/uL (4.8-10.8)
[2022-10-14 04:27] LABS: Anion Gap 17 mmol/L (10-20); BUN (Urea Nitrogen) 46 mg/dL (8.4-25.7); Calc. Creatinine Clearance 24 mL/min (70-130); Calcium 7.7 mg/dL (7.8-10.44); Carbon Dioxide 17 mmol/L (23-31); Chloride 108 mmol/L (98-107); Estimated GFR 17; Glucose 149 mg/dL (83-110); Potassium 5.2 mmol/L (3.5-5.1); Sodium 137 mmol/L (136-145)
[2022-10-14] MEDS: Sodium Chloride 0.9% 1,000 ML IV SCH (05:14)
[2022-10-14] MEDS: Levothyroxine Sodium 75 MCG TAB PO SCH (05:15)
[2022-10-14] MEDS: Carvedilol 3.125 MG TAB PO SCH (08:17)
[2022-10-14] MEDS: Escitalopram Oxalate 10 mg Tablet PO SCH (08:20)
[2022-10-14] MEDS: Allopurinol 100 MG TAB PO SCH (08:21)
[2022-10-14] MEDS: Digoxin 0.125 MG TAB PO SCH (08:21)
[2022-10-14] MEDS: Tamsulosin HCl 0.4 MG CAP PO SCH (08:22)
[2022-10-14] MEDS: Polyethylene Glycol 3350 17 GM Packet PO SCH (08:23)
[2022-10-14] MEDS: cefTRIAXone\\ROCEPHIN 2 GM in Sodium Chloride 0.9% 100 ML IVPB SCH (08:29)
[2022-10-14] MEDS: Trospium 20 MG TAB PO SCH ×2 (08:29→20:40)
[2022-10-14] MEDS ORDERED: Aspirin 81 mg Enteric Coated Tablet PO SCH (09:00)
[2022-10-14] MEDS: Albumin 25% 25 GM/100 ML BOT IVPB SCH ×3 (10:02→22:12)
[2022-10-14] MEDS ORDERED: Cepastat Lozenges 1 LOZ PO SCH (10:45)
[2022-10-14] MEDS ORDERED: Aspirin 81 mg Enteric Coated Tablet ONE (13:38)
[2022-10-14] MEDS: Cepastat Lozenges 1 LOZ PO PRN ×2 (14:02→17:31)
[2022-10-14 15:26] LABS: Hemoglobin 7.7 g/dL (14.0-18.0)
[2022-10-14] MEDS: HumaLOG 300 UNITS/3 ML VIAL SC PRN (17:26)
[2022-10-14] MEDS: Mirtazapine 15 MG TAB PO SCH (20:39)
[2022-10-14] MEDS: Famotidine 20 MG TAB PO SCH (20:39)
[2022-10-14 21:26] LABS: Hemoglobin 7.3 g/dL (14.0-18.0)
[2022-10-15] MEDS: Sodium Chloride 0.9% 1,000 ML IV SCH ×2 (00:36→08:09)
[2022-10-15 01:40] LABS: Hemoglobin 7.1 g/dL (14.0-18.0)
[2022-10-15] MEDS: Albumin 25% 25 GM/100 ML BOT IVPB SCH (03:38)
[2022-10-15] MEDS: Levothyroxine Sodium 75 MCG TAB PO SCH (06:27)
[2022-10-15] MEDS: Cepastat Lozenges 1 LOZ PO PRN (06:27)
[2022-10-15 07:37] LABS: Hemoglobin 7.6 g/dL (14.0-18.0)
[2022-10-15 07:40] LABS: Anion Gap 14 mmol/L (10-20); BUN (Urea Nitrogen) 46 mg/dL (8.4-25.7); Calc. Creatinine Clearance 24 mL/min (70-130); Calcium 7.9 mg/dL (7.8-10.44); Carbon Dioxide 21 mmol/L (23-31); Chloride 109 mmol/L (98-107); Estimated GFR 17; Glucose 151 mg/dL (83-110); Potassium 4.2 mmol/L (3.5-5.1); Sodium 140 mmol/L (136-145)
[2022-10-15] MEDS: Polyethylene Glycol 3350 17 GM Packet PO SCH (08:07)
[2022-10-15] MEDS: cefTRIAXone\\ROCEPHIN 2 GM in Sodium Chloride 0.9% 100 ML IVPB SCH (08:08)
[2022-10-15] MEDS: Allopurinol 100 MG TAB PO SCH (08:08)
[2022-10-15] MEDS: Escitalopram Oxalate 10 mg Tablet PO SCH (08:09)
[2022-10-15] MEDS: Digoxin 0.125 MG TAB PO SCH (08:09)
[2022-10-15] MEDS: Carvedilol 3.125 MG TAB PO SCH ×2 (09:51→16:50)
[2022-10-15] MEDS: HumaLOG 300 UNITS/3 ML VIAL SC PRN (16:49)
[2022-10-15 18:37] LABS: Hemoglobin 8.9 g/dL (14.0-18.0); Platelet Count 219 10x3/uL (130-400)
[2022-10-15] MEDS: Famotidine 20 MG TAB PO SCH (20:50)
[2022-10-15] MEDS: Trospium 20 MG TAB PO SCH (20:50)
[2022-10-15] MEDS: Mirtazapine 15 MG TAB PO SCH (20:50)
[2022-10-16] MEDS: Sodium Chloride 0.9% 1,000 ML IV SCH ×2 (01:16→17:46)
[2022-10-16] MEDS: Levothyroxine Sodium 75 MCG TAB PO SCH (06:38)
[2022-10-16] MEDS: HumaLOG 300 UNITS/3 ML VIAL SC PRN ×2 (06:38→11:26)
[2022-10-16] MEDS: Digoxin 0.125 MG TAB PO SCH (09:13)
[2022-10-16] MEDS: Allopurinol 100 MG TAB PO SCH (09:13)
[2022-10-16] MEDS: Escitalopram Oxalate 10 mg Tablet PO SCH (09:14)
[2022-10-16] MEDS: Carvedilol 3.125 MG TAB PO SCH ×2 (09:14→17:45)
[2022-10-16] MEDS: cefTRIAXone\\ROCEPHIN 2 GM in Sodium Chloride 0.9% 100 ML IVPB SCH (09:16)
[2022-10-16] MEDS ORDERED: Bisacodyl 5 MG TAB PO PRN (17:24)
[2022-10-16] MEDS ORDERED: Bisacodyl 5 MG TAB PO SCH (17:30)
[2022-10-16] MEDS: Polyethylene Glycol 3350 17 GM Packet PO SCH (17:47)
[2022-10-16] MEDS: Mirtazapine 15 MG TAB PO SCH (20:21)
[2022-10-16] MEDS: Trospium 20 MG TAB PO SCH (20:21)
[2022-10-16] MEDS: Famotidine 20 MG TAB PO SCH (20:22)
[2022-10-16] MEDS ORDERED: traMADol HCl 50 MG TAB PO SCH (20:45)
[2022-10-16] MEDS ORDERED: Loratadine 10 MG TAB PO SCH (21:00)
[2022-10-16] MEDS: Hyoscyamine Sulfate SL 0.125 mg Tablet SL PRN (21:14)
[2022-10-17] MEDS: Sodium Chloride 0.9% 1,000 ML IV SCH (04:10)
[2022-10-17] MEDS: Levothyroxine Sodium 75 MCG TAB PO SCH (04:50)
[2022-10-17] MEDS: Hyoscyamine Sulfate SL 0.125 mg Tablet SL PRN ×2 (04:50→13:44)
[2022-10-17 07:49] VITALS: TEMP 97.5
[2022-10-17] MEDS: Escitalopram Oxalate 10 mg Tablet PO SCH (08:37)
[2022-10-17] MEDS: Allopurinol 100 MG TAB PO SCH (08:37)
[2022-10-17] MEDS: cefTRIAXone\\ROCEPHIN 2 GM in Sodium Chloride 0.9% 100 ML IVPB SCH (08:38)
[2022-10-17] MEDS: Carvedilol 3.125 MG TAB PO SCH (08:40)
[2022-10-17] MEDS ORDERED: traMADol HCl 50 MG TAB PO PRN (09:03)
== END 2022-10-17 14:00 | disposition hospice, home (50) | DRG 660 ==
LOC: ERS 13:56 → 2NO 18:00 → SURG A 10-13 11:19 → CCU 10-13 18:50 → IMCU/EMU 10-15 19:01
PROVIDERS: ADMIT Family Medicine; ATTEND Hospitalist
PROC: 0TCB8ZZ Extirpation of Matter from Bladder, Via Natural or Artificial Opening Endoscopic (ICD-10-PCS; principal; 2022-10-13)
PROC: 0T778DZ Dilation of Left Ureter with Intraluminal Device, Via Natural or Artificial Opening Endoscopic (ICD-10-PCS; 2022-10-13)
PROC: BT1F1ZZ Fluoroscopy of Left Kidney, Ureter and Bladder using Low Osmolar Contrast (ICD-10-PCS; 2022-10-13)
PROC: 30233N1 Transfusion of Nonautologous Red Blood Cells into Peripheral Vein, Percutaneous Approach (ICD-10-PCS; 2022-10-13)
DX: R31.0 Gross hematuria (principal); D62 Acute posthemorrhagic anemia; I13.0 Hypertensive heart and chronic kidney disease with heart failure and stage 1 through stage 4 chronic kidney disease, or unspecified chronic kidney disease; I50.22 Chronic systolic (congestive) heart failure; Z20.822 Contact with and (suspected) exposure to COVID-19; I25.10 Atherosclerotic heart disease of native coronary artery without angina pectoris; N17.9 Acute kidney failure, unspecified; Z66 Do not resuscitate; N18.4 Chronic kidney disease, stage 4 (severe); Z51.5 Encounter for palliative care; D63.1 Anemia in chronic kidney disease; N13.8 Other obstructive and reflux uropathy; E11.22 Type 2 diabetes mellitus with diabetic chronic kidney disease; E03.9 Hypothyroidism, unspecified; G47.33 Obstructive sleep apnea (adult) (pediatric); R79.89 Other specified abnormal findings of blood chemistry; J44.9 Chronic obstructive pulmonary disease, unspecified; K59.00 Constipation, unspecified; E78.5 Hyperlipidemia, unspecified; I48.0 Paroxysmal atrial fibrillation; K21.9 Gastro-esophageal reflux disease without esophagitis; N40.1 Benign prostatic hyperplasia with lower urinary tract symptoms; R33.8 Other retention of urine; I45.81 Long QT syndrome; E66.01 Morbid (severe) obesity due to excess calories; E87.5 Hyperkalemia; F41.9 Anxiety disorder, unspecified; F32.A Depression, unspecified; N13.1 Hydronephrosis with ureteral stricture, not elsewhere classified; I25.2 Old myocardial infarction; Z90.2 Acquired absence of lung [part of]; Z85.118 Personal history of other malignant neoplasm of bronchus and lung; Z88.5 Allergy status to narcotic agent; Z95.5 Presence of coronary angioplasty implant and graft; Z79.02 Long term (current) use of antithrombotics/antiplatelets; Z79.890 Hormone replacement therapy; Z87.442 Personal history of urinary calculi; Z91.018 Allergy to other foods; Z91.040 Latex allergy status; Z79.4 Long term (current) use of insulin; Z79.82 Long term (current) use of aspirin; Z90.49 Acquired absence of other specified parts of digestive tract; Z98.41 Cataract extraction status, right eye; Z98.42 Cataract extraction status, left eye; Z85.51 Personal history of malignant neoplasm of bladder; Z87.891 Personal history of nicotine dependence; Z68.33 Body mass index [BMI] 33.0-33.9, adult; C67.9 Malignant neoplasm of bladder, unspecified; D35.00 Benign neoplasm of unspecified adrenal gland; E11.65 Type 2 diabetes mellitus with hyperglycemia; R33.9 Retention of urine, unspecified; N13.5 Crossing vessel and stricture of ureter without hydronephrosis; N20.0 Calculus of kidney; N28.1 Cyst of kidney, acquired; Z87.438 Personal history of other diseases of male genital organs
CPT/HCPCS: 36415; 36416; 36430; 71045; 74176; 74420; 80048; 80053; 80061; 81003; 81015; 82088; 82533; 82553; 83036; 83835; 84244; 84484; 85014; 85018; 85025; 85610; 85730; 86850; 86900; 86901; 87086; 88304; 93005; 93010; C2617; J0696; J1815; J2405; J2765; J3010; J3490; J7050; P9016; P9047; Q9967; S0028; U0003; U0005